=== PATIENT | male | born 1970 | race Caucasian/White ===

== ENCOUNTER 2021-11-01 11:36 | Emergency (ER) | payer BC, SELFPAY ==
--- NOTE | ~2021-11-01 | XR_ITS ---
EXAMINATION: XR CHEST CLINICAL INFORMATION: Shortness of breath COMPARISON: Previous chest x-ray most recent September 2016 TECHNIQUE: Frontal view of the chest was obtained. FINDINGS: The cardiac and mediastinal contours are stable. The lungs are clear. There is no pleural effusion or pneumothorax. There are old left clavicle and left rib fractures. There are degenerative changes of the spine. XR/XR chest 1V IMPRESSION: No evidence for acute disease in the chest.
[2021-11-01 12:45] VITALS: BP 127/82; PULSE 83; RESP 18; TEMP 36.8; O2SAT 95; BMI 30.2
[2021-11-01 13:08] LABS: COVID-19 Test Negative (Negative)
[2021-11-01 18:31] VITALS: BP 137/88; PULSE 80; RESP 16; TEMP 36.8; O2SAT 96
--- NOTE | 2021-11-01 18:34 | ED_ITS ---
HPI - SOB/Dyspnea General Chief Complaint: Dyspnea Stated Complaint: SOB Time Seen by Provider: 11/01/21 18:34 Source: patient Mode of arrival: ambulatory Limitations: no limitations History of Present Illness HPI Narrative: 51 y/o male presents to the ER for evaluation of 6-7 days of a productive, hacking cough. He reports cough is worse at night and keeps him up. He has right sided rib pain when he coughs similar to when he broke ribs. He feels like he may have pneumonia. He is bringing up yellow and white phlegm. He denies fever or chills and reports the worse part is his coughing fits. He has been taking Day and Nyquil with minimal relief. He denies any known sick contacts. MD elicited complaint: cough and pain with inspiration Onset (ago): week(s) (1) Context: recent illness Timing: progressively worsening Severity: moderate Exacerbating factors: coughing Relieving factors: upright position and cool air Associated symptoms: chest pain, pain with inspiration, cough, wheezing, sputum production and chest congestion Treatment prior to arrival: none Related Data Home oxygen amount: none Previous Rx's Medication Instructions Recorded albuterol sulfate 90 mcg/actuation 1 inh INHALATION QID PRN #6.7 g 11/01/21 aerosol inhaler amoxicillin 875 mg-potassium 1 tab PO BID #14 tab 11/01/21 clavulanate 125 mg tablet prednisone 20 mg tablet 40 mg PO DAILY #10 tab 11/01/21 Allergies Allergy/AdvReac Type Severity Reaction Status Date / Time No Known Allergies Allergy Verified 11/01/21 12:44 Review of Systems Review of Systems: Constitutional: No Fever, No Chills ENT/Mouth: + sore throat, No Rhinorrhea, No Swallowing Difficulty Cardiovascular: + Chest Pain, + SOB, No Orthopnea, No Edema Respiratory:+ Cough, + Sputum, + Wheezing, No dyspnea Gastrointestinal: No Nausea, No Vomiting, No Diarrhea, No abdominal Pain Musculoskeletal: No joint pain, + Myalgias Skin: No Skin Lesions, No rash Neuro: No Weakness, No Numbness, No Dizziness, + Headache Psych: No Anxiety/Panic, No Depression Heme/Lymph: No Bruising, No Lymphadenopathy PMFSH Social History Social History Advance Directives: No Advance Directives Information Provided: No Physical Exam 2 Vital Signs: Vital Signs: Last Vital Signs Temp 98.3 F 11/01/21 18:31 Pulse 80 11/01/21 18:31 Resp 16 11/01/21 18:31 BP 137/88 11/01/21 18:31 Pulse Ox 96 11/01/21 18:31 BMI result Body Mass Index 30.2 Appearance: Alert. Oriented X3. No acute distress. Eyes: Pupils equal, round and reactive to light. ENT: Pharynx normal. Neck: Normal inspection. Neck supple. CVS: Normal heart rate and rhythm. Pulses normal. Respiratory: No respiratory distress. Speaks in complete sentences. Harsh, barking cough. End expiratory wheezes in the upper lung chery and scattered rhonchi throughout Abdomen: Soft and nontender. +BS x4 Skin: Skin warm and dry. Normal skin color. Normal skin turgor. No rashes. Extremities: No lower extremity edema. No calf tenderness Neuro: Oriented X 3. No motor deficit. No sensory deficit. Course Course Course Narrative: 51 y/o male presenting with barking cough productive of yellow phelgm and right sided rib pain for 1 week. CXR is clear, no appreciated rib fx. COVID negative. VS normal. Wheezing on exam and rhonchi. Will treat for acute bronchitis. Will give neb and steroids now given wheezing. Reevaluation(s) Reevaluation #1: Only did about half of the updraft and said he feels better and wants to be discharged. Stable for d/c home MDM - SOB/Dyspnea Lab Data Labs: Lab Results 11/01/21 Range/Units 12:48 COVID-19 (CHARLIE) Negative (Negative) COVID-19 Clin Com See Note Discharge Plan Discharge Clinical Impression: Acute bronchitis Patient Disposition: Home, Self-Care Instructions: Acute Bronchitis (ED) Prescriptions: New amoxicillin-pot clavulanate 875-125 mg tablet 1 tab PO BID Qty: 14 0RF albuterol sulfate 90 mcg/actuation HFA aerosol inhaler 1 inh inhalation QID PRN (Reason: shortness of breath or wheezing) Qty: 6.7 0RF prednisone 20 mg tablet 40 mg PO DAILY Qty: 10 0RF Interventions: ED Discharge Assessment Last Done: 11/01/21 19:08 Discharge Date/Time: 11/01/21 19:09
[2021-11-01] MEDS: Amoxicillin/Potassium Clav 875 MG TABLET PO (18:48)
[2021-11-01] MEDS: predniSONE 20 MG TABLET 60 MG PO (18:48)
[2021-11-01] MEDS: Benzonatate 100 MG CAPSULE PO (18:48)
[2021-11-01] MEDS: Albuterol Sulfate (0.083%) 2.5 MG/3 ML VIAL.NEB 5 MG INHALE (19:05)
[2021-11-01 19:12] LABS: Influenza A Negative (Negative); Influenza B2 Negative (Negative)
== END 2021-11-01 19:09 | disposition home or self-care (01) ==
PROVIDERS: Physician Assistant; Emergency Provider Internal Medicine; PCP Internal Medicine
DX: J20.9 Acute bronchitis, unspecified (principal); R06.02 Shortness of breath; Z20.822 Contact with and (suspected) exposure to COVID-19; Z79.899 Other long term (current) drug therapy
CPT/HCPCS: 71045; 87502; 87635; 99284

== ENCOUNTER 2021-12-11 01:12 | Inpatient (IN) | payer BC, SELFPAY ==
--- NOTE | ~2021-12-11 | XR_ITS ---
EXAMINATION: XR CHEST CLINICAL INFORMATION: Cough COMPARISON: Multiple priors TECHNIQUE: Frontal view of the chest was obtained. FINDINGS: Streaky opacities within the lower lungs bilaterally could represent subsegmental atelectasis or infiltrate. No epifanio consolidation. No pleural effusion or pneumothorax. Normal heart size and pulmonary vascularity. Healed fracture deformity of the left mid clavicle. XR/XR chest 1V IMPRESSION: Bilateral lower lobe streaky opacities could represent infiltrates or subsegmental atelectasis.
[2021-12-11 01:17] VITALS: BP 120/79; BP 98/72; PULSE 92; PULSE 94; RESP 18; TEMP 36.6; O2SAT 90; O2SAT 93; BMI 28.8
--- NOTE | 2021-12-11 01:43 | ED.OVERDOSE ---
HPI - Overdose General Chief Complaint: Overdose Stated Complaint: OD Time Seen by Provider: 12/11/21 01:34 History of Present Illness HPI Narrative: Patient is a 51-year-old male found in his basement with pinpoint pupil agonal breathing. Given 7 mg in total of Narcan. Patient woke up. Now is awake alert answering questions. Patient admits to using narcotics. Denies any suicidal homicidal ideation. Was using it for recreational reasons. Has no complaints. Patient from home. Patient not vaccinated for COVID. Related Data Previous Rx's Medication Instructions Recorded albuterol sulfate 90 mcg/actuation 1 inh inhalation QID PRN shortness 11/01/21 aerosol inhaler of breath or wheezing #6.7 grams amoxicillin 875 mg-potassium 1 tab PO BID #14 tabs 11/01/21 clavulanate 125 mg tablet prednisone 20 mg tablet 40 mg PO DAILY #10 tabs 11/01/21 Allergies Allergy/AdvReac Type Severity Reaction Status Date / Time No Known Allergies Allergy Verified 11/01/21 12:44 Review of Systems Review of Systems: Positive overdose Yes all other systems are reviewed and are negative [facility] Past Medical History Attestation statement: The following information was validated with the patient. Social History Social History Alcohol intake: never Patient Tobacco Use Status: Current everyday Tobacco user Use of substances other than those prescribed or required for medical reasons: Yes Substance Use Type: Heroin Advance Directives: No Advance Directives Information Provided: Yes Physical Exam Vital Signs: Vital Signs: Last Vital Signs Temp 97.9 F 12/11/21 01:17 Pulse 92 12/11/21 01:17 Resp 18 12/11/21 01:17 BP 98/72 12/11/21 01:17 Pulse Ox 90 L 12/11/21 01:17 O2 Del Method 12/11/21 01:17 BMI result Body Mass Index 28.8 Appearance: Alert. Oriented X3. No acute distress. Eyes: Pupils equal, round and reactive to light. ENT: Pharynx normal. Neck: Normal inspection. Neck supple. No lymph nodes noted. No crepitus CVS: Normal heart rate and rhythm. Pulses normal. Normal S1 and S2 Respiratory: Positive mild wheezing noted Abdomen: Soft and nontender. No rigidity. No distention. good BS x4 Skin: Skin warm and dry. Normal skin color. Normal skin turgor. Extremities: No lower extremity edema. Neurovascular intact to all extremities. No Lacerations. No Rash Neuro: Oriented X 3. No motor deficit. No sensory deficit. Moving all extermities. No slurred speech MDM - Overdose MDM Narrative Medical decision making narrative: Patient presented today with having altered mental status decreased respiratory rate. Pinpoint pupil. Was given 7 mg in total of Narcan prior to arrival. On arrival patient is breathing at that point. Patient somewhat tired but answered question. There is no fever detected. Patient was noted to be hypoxic with an O2 sat of 90% on room air. Has slightly increased respiratory rate. Patient baseline labs were drawn. It showed a white count of 25. It showed a BUN and creatinine of 17 and 2. No old creatinine was noted the last few years. The previous 1 was in 2013 was normal. IV fluids started. 30 cc/kilos IV fluid. Culture obtained lactate obtained Rocephin started for possible aspiration as patient's chest x-ray showed a focal infiltrate. Patient's case discussed with the hospitalist team. Patient's lactate came back less than 1. He is in stable condition he is awaiting admission. Most likely pneumonia Medical Records Attestation: I reviewed the patient's medical records. Lab Data Attestation: I reviewed the patient's lab results. Result diagrams: 12/11/21 02:09 12/11/21 02:09 Labs: Lab Results 12/11/21 12/11/21 12/11/21 Range/Units 02:09 02:09 02:09 WBC 25.1 H (4.8-10.8) X10*3/uL RBC 5.14 (4.60-5.80) X10*6/uL Hgb 14.8 (14.0-18.0) g/dl Hct 44.2 (42.0-52.0) % MCV 86.0 (80.0-98.0) fL MCH 28.8 (27.0-33.0) pg MCHC 33.5 (31.0-36.0) g/dl RDW 13.6 (11.0-16.0) % Plt Count 325 (160-400) X10*3/uL MPV 9.7 (9.4-12.4) fL Immature Gran % (Auto) 0.9 H (0.0-0.4) % Neut % (Auto) 85.0 H (45-73) % Lymph % (Auto) 3.9 L (20-40) % [place] % (Auto) 7.4 (2-11) % Eos % (Auto) 2.3 (0-4) % Baso % (Auto) 0.5 (0-2) % Lymph # (Auto) 1.0 L (1.2-4.9) X10*3/uL [place] # (Auto) 1.9 H (0.1-1.2) X10*3/uL Eos # (Auto) 0.6 H (0.0-0.4) X10*3/uL Baso # (Auto) 0.1 (0.0-0.2) X10*3/uL Abs Immat Gran (auto) 0.22 H (0.00-0.03) X10*3/uL Absolute Neuts (auto) 21.3 H (2.0-8.3) x10*3/uL Absolute Nucleated RBC 0.000 (0.0-0.012) X10*3/uL Nucleated RBC % (auto) 0.0 (0.0-0.2) /100WBC Smear Tech's Comments VERIFIED Sodium 143 (135-145) mmol/L Potassium 3.4 (3.3-5.1) mmol/L Chloride 109 H (96-108) mmol/L Carbon Dioxide 25 (22-29) mmol/L Anion Gap 12 (12-20) BUN 17 H (9-16) mg/dL Creatinine 2.00 H (0.5-1.4) mg/dL Estim Creat Clear Calc 48.1 Estimated GFR 35 Random Glucose 97 (60-115) mg/dL Lactic Acid (0.5-2.0) mmol/L Calcium 9.3 (8.4-10.2) mg/dL Ethyl Alcohol mg/dL COVID-19 (CHARLIE) Negative (Negative) COVID-19 Clin Com See Note 12/11/21 12/11/21 Range/Units 02:09 02:59 WBC (4.8-10.8) X10*3/uL RBC (4.60-5.80) X10*6/uL Hgb (14.0-18.0) g/dl Hct (42.0-52.0) % MCV (80.0-98.0) fL MCH (27.0-33.0) pg MCHC (31.0-36.0) g/dl RDW (11.0-16.0) % Plt Count (160-400) X10*3/uL MPV (9.4-12.4) fL Immature Gran % (Auto) (0.0-0.4) % Neut % (Auto) (45-73) % Lymph % (Auto) (20-40) % [place] % (Auto) (2-11) % Eos % (Auto) (0-4) % Baso % (Auto) (0-2) % Lymph # (Auto) (1.2-4.9) X10*3/uL [place] # (Auto) (0.1-1.2) X10*3/uL Eos # (Auto) (0.0-0.4) X10*3/uL Baso # (Auto) (0.0-0.2) X10*3/uL Abs Immat Gran (auto) (0.00-0.03) X10*3/uL Absolute Neuts (auto) (2.0-8.3) x10*3/uL Absolute Nucleated RBC (0.0-0.012) X10*3/uL Nucleated RBC % (auto) (0.0-0.2) /100WBC Smear Tech's Comments Sodium (135-145) mmol/L Potassium (3.3-5.1) mmol/L Chloride (96-108) mmol/L Carbon Dioxide (22-29) mmol/L Anion Gap (12-20) BUN (9-16) mg/dL Creatinine (0.5-1.4) mg/dL Estim Creat Clear Calc Estimated GFR Random Glucose (60-115) mg/dL Lactic Acid 0.9 (0.5-2.0) mmol/L Calcium (8.4-10.2) mg/dL Ethyl Alcohol < 10 mg/dL COVID-19 (CHARLIE) (Negative) COVID-19 Clin Com Discharge Plan Discharge Clinical Impression: Drug overdose, Pneumonia Patient Disposition: Admitted As Inpatient
[2021-12-11 02:15] LABS: Basophils Absolute Auto 0.1 X10*3/uL (0.0-0.2); Basophils Percent Auto 0.5 % (0-2); Eosinophils Absolute Auto 0.6 X10*3/uL (0.0-0.4); Eosinophils Percent Auto 2.3 % (0-4); Hematocrit 44.2 % (42.0-52.0); Hemoglobin 14.8 g/dl (14.0-18.0); Imm Gran Abs Auto 0.22 X10*3/uL (0.00-0.03); Imm Gran Pct Auto 0.9 % (0.0-0.4); Lymphocytes Percent Auto 3.9 % (20-40); MANUAL DIFF FLAG SCAN; Mean Corpuscular HGB Conc 33.5 g/dl (31.0-36.0); Mean Corpuscular Hemoglobin 28.8 pg (27.0-33.0); Mean Platelet Volume 9.7 fL (9.4-12.4); Monocytes Absolute Auto 1.9 X10*3/uL (0.1-1.2); Monocytes Percent Auto 7.4 % (2-11); Neutrophils Absolute Auto 21.3 x10*3/uL (2.0-8.3); Platelet Count 325 X10*3/uL (160-400); Red Blood Count 5.14 X10*6/uL (4.60-5.80); Red Cell Distribution Width 13.6 % (11.0-16.0); SCAN SMEAR FLAG 1; White Blood Count 25.1 X10*3/uL (4.8-10.8)
[2021-12-11 02:29] LABS: COVID-19 Test Negative (Negative); IDNOW Serial# 16C4AD1C
[2021-12-11 02:31] LABS: Ethanol < 10 mg/dL
[2021-12-11 02:33] LABS: Anion Gap 12 (12-20); Blood Urea Nitrogen 17 mg/dL (9-16); Calcium 9.3 mg/dL (8.4-10.2); Carbon Dioxide 25 mmol/L (22-29); Chloride 109 mmol/L (96-108); Creatinine Clr Calc Pharmacy 48.1; Estimated Glomerular Filt Rate 35; Glucose Random 97 mg/dL (60-115); Potassium 3.4 mmol/L (3.3-5.1); Sodium 143 mmol/L (135-145)
[2021-12-11 02:37] LABS: SLIDE REVIEW VERIFIED
[2021-12-11] MEDS: 0.9 % Sodium Chloride 1,000 ML 999 ML IV ×3 (02:45→03:02)
[2021-12-11] MEDS: cefTRIAXone sodium 1 GM in 0.9 % Sodium Chloride 50 ML IV (03:09)
[2021-12-11 03:26] LABS: Lactic Acid 0.9 mmol/L (0.5-2.0)
--- NOTE | 2021-12-11 04:00 | P.HPHOSP_ITS ---
History of Present Illness Date of Service: 12/11/21 Chief Complaint: Heroin overdose 51-year-old male with a past medical history of asthma, opiate dependence presented to the hospital after being found unresponsive at home. Patient mentioned that he uses heroin frequently. Today he was found in the basement unresponsive. Patient was given Narcan 7 mg total. Followed by patient became alert and awake. Subsequently brought into the ER for further evaluation. Patient denies any fever chills cough. Denies any chest pain or palpitations. Denies any nausea vomiting or diarrhea. Review of all other systems is negative except mentioned above ER course: Per ER team patient currently alert and awake; exam nonfocal; but noted to have hypoxic to 90% on room air; chest x-ray showed findings concerning for pneumonia; given gentle IV fluids and started on antibiotics. Also noted to have leukocytosis of 25 and elevated kidney function of 2.0. Admitted for further management. [facility] Pertinent family history: Reviewed, denies any significant family history. Social History Alcohol intake: never Patient Tobacco Use Status: Current everyday Tobacco user Use of substances other than those prescribed or required for medical reasons: Yes Substance Use Type: Heroin Advance Directives: No Advance Directives Information Provided: Yes Meds Allergies Allergy/AdvReac Type Severity Reaction Status Date / Time No Known Allergies Allergy Verified 11/01/21 12:44 Active Medications: Current Medications Sodium Chloride (Ns) 1,000 mls @ 999 mls/hr IV .Q1H1M CLEMENTE Stop: 12/11/21 04:45 Last Admin: 12/11/21 03:02 Dose: 999 mls/hr Pharmacy Consult (Consult Rx Perform Med Rec) 1 each MISCELLANE ONCE PRN PRN Reason: Consult order Physical Exam Vital Signs and Narrative: Vital Signs: Last Vital Signs Temp 97.9 F 12/11/21 01:17 Pulse 92 12/11/21 01:17 Resp 18 12/11/21 01:17 BP 98/72 12/11/21 01:17 Pulse Ox 90 L 12/11/21 01:17 O2 Del Method 12/11/21 01:17 BMI result Body Mass Index 28.8 Gen: Appears be in no acute distress HEENT: NCAT, Moist mucosa. Pulmonary: Vesicular breath sounds, fair air entry CVS: Normal S1-S2 Abdomen: BS+, Soft, Nontender Extremities: Warm well perfused Neuro: Alert and awake. Results Labs CBC and Chem 7: 12/11/21 02:09 12/11/21 02:09 Labs: Laboratory Results - last 24 hr 12/11/21 12/11/21 12/11/21 02:09 02:09 02:09 MCV 86.0 MCH 28.8 MCHC 33.5 RDW 13.6 Plt Count 325 MPV 9.7 Immature Gran % (Auto) 0.9 H Neut % (Auto) 85.0 H Lymph % (Auto) 3.9 L [place] % (Auto) 7.4 Eos % (Auto) 2.3 Baso % (Auto) 0.5 Lymph # (Auto) 1.0 L [place] # (Auto) 1.9 H Eos # (Auto) 0.6 H Baso # (Auto) 0.1 Abs Immat Gran (auto) 0.22 H Absolute Neuts (auto) 21.3 H Absolute Nucleated RBC 0.000 Nucleated RBC % (auto) 0.0 Smear Tech's Comments VERIFIED Anion Gap 12 Estim Creat Clear Calc 48.1 Estimated GFR 35 Random Glucose 97 Lactic Acid Calcium 9.3 Ethyl Alcohol COVID-19 (CHARLIE) Negative COVID-19 Clin Com See Note 12/11/21 12/11/21 02:09 02:59 MCV MCH MCHC RDW Plt Count MPV Immature Gran % (Auto) Neut % (Auto) Lymph % (Auto) [place] % (Auto) Eos % (Auto) Baso % (Auto) Lymph # (Auto) [place] # (Auto) Eos # (Auto) Baso # (Auto) Abs Immat Gran (auto) Absolute Neuts (auto) Absolute Nucleated RBC Nucleated RBC % (auto) Smear Tech's Comments Anion Gap Estim Creat Clear Calc Estimated GFR Random Glucose Lactic Acid 0.9 Calcium Ethyl Alcohol < 10 COVID-19 (CHARLIE) COVID-19 Clin Com Imaging Radiologist's Impressions: Impressions Chest X-Ray 12/11/21 01:40 IMPRESSION: Bilateral lower lobe streaky opacities could represent infiltrates or subsegmental atelectasis. Assessment and Plan (1) Pneumonia: Status: Acute (2) Drug overdose: Status: Acute Plan 51-year-old male with a past medical history of asthma, opiate dependence presented to the hospital after being found unresponsive at home. Noted to have following conditions Unresponsive episode: In the setting of heroin overdose. Patient noted to have pinpoint pupils on the field. Received 7 mg of total Narcan. Patient currently alert and awake. Answering questions. Supportive care. Monitor on telemetry. Pneumonia: Concern for aspiration. Patient afebrile but noted to have severe leukocytosis. Patient currently on ceftriaxone and doxycycline. Follow up cultures. JOSE: Likely prerenal. Gentle IV fluids. Opiate dependence: Addiction Medicine consult. History of asthma: Stable. DVT prophylaxis: Lovenox Code status: Full code Quality Stroke Does the patient have a stroke diagnosis?: No VTE Prior VTE?: No VTE Risk Level:: Medical - moderate - high VTE Device Contraindication: Treatment Not Indicated VTE Drug Contraindication: N/A - Med Ordered
--- NOTE | 2021-12-11 04:49 | PC.NURSE ---
Patients fluids were not running due to IV pole being to low. Iv pole replaced and elevated and fluids now running . Dextrose ordered fluid will be late
[2021-12-11 05:10] VITALS: BP 96/55; PULSE 92; RESP 18; O2SAT 98
[2021-12-11] MEDS: Dextrose 5 % and 0.9 % NaCl 1,000 ML 100 ML IVCONT (05:22)
[2021-12-11] MEDS: Doxycycline Hyclate 100 MG in 0.9 % Sodium Chloride 250 ML 166.67 MG IV (05:22)
[2021-12-11 07:02] LABS: MANUAL DIFF FLAG NO
[2021-12-11 07:06] LABS: Basophils Absolute Auto 0.1 X10*3/uL (0.0-0.2); Basophils Percent Auto 0.5 % (0-2); Eosinophils Absolute Auto 0.3 X10*3/uL (0.0-0.4); Eosinophils Percent Auto 1.9 % (0-4); Hematocrit 38.8 % (42.0-52.0); Hemoglobin 12.9 g/dl (14.0-18.0); Imm Gran Abs Auto 0.09 X10*3/uL (0.00-0.03); Imm Gran Pct Auto 0.6 % (0.0-0.4); Lymphocytes Absolute Auto 1.2 X10*3/uL (1.2-4.9); Lymphocytes Percent Auto 8.4 % (20-40); Mean Corpuscular HGB Conc 33.2 g/dl (31.0-36.0); Mean Corpuscular Hemoglobin 29.2 pg (27.0-33.0); Mean Corpuscular Volume 87.8 fL (80.0-98.0); Monocytes Absolute Auto 1.1 X10*3/uL (0.1-1.2); Monocytes Percent Auto 7.2 % (2-11); Neutrophils Percent Auto 81.4 % (45-73); Platelet Count 290 X10*3/uL (160-400); Red Blood Count 4.42 X10*6/uL (4.60-5.80); Red Cell Distribution Width 13.8 % (11.0-16.0); White Blood Count 14.8 X10*3/uL (4.8-10.8)
[2021-12-11 07:25] LABS: Anion Gap 12 (12-20); Blood Urea Nitrogen 15 mg/dL (9-16); Calcium 7.6 mg/dL (8.4-10.2); Carbon Dioxide 21 mmol/L (22-29); Chloride 112 mmol/L (96-108); Creatinine Clr Calc Pharmacy 63.7; Estimated Glomerular Filt Rate 49; Glucose Random 140 mg/dL (60-115); Potassium 3.6 mmol/L (3.3-5.1); Sodium 141 mmol/L (135-145)
[2021-12-11 07:37] VITALS: BP 114/66; PULSE 76; RESP 20; O2SAT 97
[2021-12-11 08:35] LABS: Alanine Aminotransferase 41 U/L (0-40); Albumin Level 3.6 g/dL (3.5-5.0); Alkaline Phosphatase 78 U/L (39-117); Aspartate Amino Transferase 50 U/L (5-37); Bilirubin Direct < 0.2 mg/dL (0.0-0.5); Bilirubin Total 0.4 mg/dL (0.0-1.0); Total Protein 5.8 g/dL (6.5-8.0)
--- NOTE | 2021-12-11 08:44 | PHA.MEDREC ---
med rec complete, no issues Pharmacy Consult ? Medication Reconciliation Pharmacy has completed the medication reconciliation.
--- NOTE | 2021-12-11 09:50 | MHC.RECOVSUP ---
Recovery Support note: Patient is a 51 year old [place] speaking male who presented to [facility] after an accidental heroin overdose. This scientific technical writer met with patient to discuss substance use and recovery supports. Patient reports his nephew recently got out of substance use rehab and that he found him overdosed and called EMS. Patient reports he saw the heroin that his nephew was using and that he decided to try it out. Patient stated curiosity got the best of me. Patient reports he had never used heroin before and that this was his first time. Patient used intranasally. Patient reports he uses marijuana and denies all other substance use. Educated patient on the prevalence of fentanyl in local substances, the effects of tolerance and the risk of overdose and . Patient acknowledges and reports he will never be using heroin again. Patient stated curiosity almost killed the cat, almost killed me. Discussed case with Siria Fink NP.
--- NOTE | 2021-12-11 10:45 | HO.PM.IMPN ---
Subjective Subjective Date of Service: 12/11/21 Interval History: cc: ams interval history:cough Cardiovascular Cardiovascular: Reports no additional cardiovascular complaints Respiratory Respiratory: Reports no additional respiratory complaints Physical Exam Vital Signs: Vital Signs: Last Vital Signs Temp 97.9 F 12/11/21 01:17 Pulse 76 12/11/21 07:37 Resp 20 12/11/21 07:37 BP 114/66 12/11/21 07:37 Pulse Ox 97 12/11/21 07:37 O2 Del Method 12/11/21 07:37 O2 Flow Rate 2 12/11/21 07:37 BMI result Body Mass Index 28.8 General: AO X 3, no acute distress Resp: Crackles bilateral, no accessory muscles used CVS: S1,S2,RRR GI: soft, non tender, non distended Neuro: motor grossly intact, alert Psych: appropriate affect, appropriate insight Objective Data Active Medications Acetaminophen (Acetaminophen 325 Mg Tablet) 650 mg PO Q6H PRN PRN Reason: Pain, Mild (Pain Scale 1-3) Albuterol/Ipratropium (Albuterol/Iprat 2.5/0.5mg 3 Ml Ampul.Neb) 3 ml INHALE RQ4H PRN PRN Reason: Shortness of Breath/Wheezing Enoxaparin Sodium (Enoxaparin Sodium 40 Mg/0.4 Ml Syringe) 40 mg SUBCUT Q24H [facility] Last Admin: 12/11/21 05:23 Dose: Not Given Documented By: LATRICIA Non-Admin Reason: Patient Refused Ceftriaxone Sodium 1 gm/ (Sodium Chloride) 50 mls @ 100 mls/hr IV Q24H [facility] Melatonin (Melatonin 3 Mg Tablet) 6 mg PO BEDTIME PRN PRN Reason: Insomnia Oxycodone HCl (Oxycodone Hcl Immed Release 5 Mg Tablet) 5 mg PO Q6H PRN PRN Reason: Pain, Severe (Pain Scale 7-10) Pharmacy Consult (Consult Rx Perform Med Rec) 1 each MISCELLANE ONCE PRN PRN Reason: Consult order Pharmacy Consult (Consult Rx Perform Med Rec) 1 each MISCELLANE ONCE PRN PRN Reason: Consult order Sodium Chloride (0.9 % Sodium Chloride Flush 3 Ml Syringe) 3 ml IVFLUSH QSHIFT [facility] Labs CBC & Chem 7: 12/11/21 06:38 12/11/21 06:38 Labs: Laboratory Results - last 24 hr 12/11/21 12/11/21 12/11/21 02:09 02:09 02:09 MCV 86.0 MCH 28.8 MCHC 33.5 RDW 13.6 Plt Count 325 MPV 9.7 Immature Gran % (Auto) 0.9 H Neut % (Auto) 85.0 H Lymph % (Auto) 3.9 L [place] % (Auto) 7.4 Eos % (Auto) 2.3 Baso % (Auto) 0.5 Lymph # (Auto) 1.0 L [place] # (Auto) 1.9 H Eos # (Auto) 0.6 H Baso # (Auto) 0.1 Abs Immat Gran (auto) 0.22 H Absolute Neuts (auto) 21.3 H Absolute Nucleated RBC 0.000 Nucleated RBC % (auto) 0.0 Smear Tech's Comments VERIFIED Anion Gap 12 Estim Creat Clear Calc 48.1 Estimated GFR 35 Random Glucose 97 Lactic Acid Calcium 9.3 Total Bilirubin Direct Bilirubin AST ALT Alkaline Phosphatase Total Protein Albumin Ethyl Alcohol COVID-19 (CHARLIE) Negative COVID-19 Clin Com See Note 12/11/21 12/11/21 12/11/21 02:09 02:59 06:38 MCV 87.8 MCH 29.2 MCHC 33.2 RDW 13.8 Plt Count 290 MPV 10.0 Immature Gran % (Auto) 0.6 H Neut % (Auto) 81.4 H Lymph % (Auto) 8.4 L [place] % (Auto) 7.2 Eos % (Auto) 1.9 Baso % (Auto) 0.5 Lymph # (Auto) 1.2 [place] # (Auto) 1.1 Eos # (Auto) 0.3 Baso # (Auto) 0.1 Abs Immat Gran (auto) 0.09 H Absolute Neuts (auto) 12.0 H Absolute Nucleated RBC 0.000 Nucleated RBC % (auto) 0.0 Smear Tech's Comments Anion Gap Estim Creat Clear Calc Estimated GFR Random Glucose Lactic Acid 0.9 Calcium Total Bilirubin Direct Bilirubin AST ALT Alkaline Phosphatase Total Protein Albumin Ethyl Alcohol < 10 COVID-19 (CHARLIE) COVID-19 Clin Com 12/11/21 06:38 MCV MCH MCHC RDW Plt Count MPV Immature Gran % (Auto) Neut % (Auto) Lymph % (Auto) [place] % (Auto) Eos % (Auto) Baso % (Auto) Lymph # (Auto) [place] # (Auto) Eos # (Auto) Baso # (Auto) Abs Immat Gran (auto) Absolute Neuts (auto) Absolute Nucleated RBC Nucleated RBC % (auto) Smear Tech's Comments Anion Gap 12 Estim Creat Clear Calc 63.7 Estimated GFR 49 Random Glucose 140 H D Lactic Acid Calcium 7.6 L D Total Bilirubin 0.4 Direct Bilirubin < 0.2 AST 50 H ALT 41 H Alkaline Phosphatase 78 Total Protein 5.8 L Albumin 3.6 Ethyl Alcohol COVID-19 (CHARLIE) COVID-19 Clin Com Assessment and Plan (1) Drug overdose: Status: Acute Plan 51M presented with ams Toxic metabolic encephalopathy due to accidental heroin overdose complicated by Severe sepsis present on admission due to aspiration pneumonia. ( tachycardia, leukocytosis, acute kidney injury) mental status back to baseline after Narcan sepsis resolved, leukocytosis improving continue ceftriaxone follow-up cultures acute kidney injury likely prerenal improving with IV fluids, will change to LR due to hyperchloremia opiate dependence addiction medicine evaluation mood disorder continue fluoxetine mild intermittent asthma albuterol as needed DVT prophylaxis with Lovenox full code reason for continued hospitalization: need for iv hydration for feliz, iv abx for aspiration pnuemonia Quality Stroke Does the patient have a stroke diagnosis?: No VTE Prior VTE?: No VTE Risk Level:: Medical - moderate - high VTE Device Contraindication: Treatment Not Indicated VTE Drug Contraindication: N/A - Med Ordered
[2021-12-11] MEDS: Lactated Ringers 1,000 ML 80 ML IVCONT ×2 (10:55→21:55)
[2021-12-11 14:05] VITALS: BP 95/76; PULSE 76; RESP 22; O2SAT 94
--- NOTE | 2021-12-11 17:43 | PM.EVENT ---
Event Note Date of Service: 12/11/21 Event Note: Addiction Consult Please see Recovery Support Note from 12/11
--- NOTE | 2021-12-11 18:07 | PC.NURSE ---
This RN assumed care of patient in overflow unit at this time
[2021-12-11 18:18] VITALS: BP 140/81; PULSE 84; RESP 16; TEMP 36.6; O2SAT 95
[2021-12-11] MEDS: Benzonatate 100 MG CAPSULE 200 MG PO (18:39)
[2021-12-11 20:00] VITALS: PULSE 71
[2021-12-11] MEDS: Melatonin 3 MG TABLET 6 MG PO (21:57)
[2021-12-11] MEDS: oxyCODONE HCl Immed Release 5 MG TABLET PO (22:12)
--- NOTE | 2021-12-11 23:13 | PC.NURSE ---
Assumed care of pt Pt c/o sound on monitor and pump. Explained to pt that monitors are all connected when one monitor beeps sometimes they all beep. Explained to pt that staff, including this RN, will try to keep on top of monitor beeps and turn it off as soon as we can. Pt verbalized understanding. Pt medicated per AUG Pt tolerated pills Pt requesting more cough med. Dr. Méndez made aware. 20 guage IV placed on RT forearm Pt c/o pain from old IV site No tremors noted Denies any join pain, only c/o pain in abdomen when coughing Denies any AH/VH AxO x 4, clear and complete sentences Will continue to monitor
[2021-12-12] VITALS (9 sets, daily range): BP systolic 127–158; BP diastolic 74–93; PULSE 70–97; RESP 18–20; TEMP 36.6–37.3; O2SAT 95–100
[2021-12-12] MEDS: Benzonatate 100 MG CAPSULE 200 MG PO ×2 (05:10→18:30)
[2021-12-12 07:16] LABS: Hematocrit 39.2 % (42.0-52.0); Hemoglobin 12.9 g/dl (14.0-18.0); Mean Corpuscular HGB Conc 32.9 g/dl (31.0-36.0); Mean Corpuscular Hemoglobin 28.9 pg (27.0-33.0); Mean Corpuscular Volume 87.7 fL (80.0-98.0); Platelet Count 261 X10*3/uL (160-400); Red Blood Count 4.47 X10*6/uL (4.60-5.80); Red Cell Distribution Width 13.8 % (11.0-16.0); White Blood Count 11.1 X10*3/uL (4.8-10.8)
[2021-12-12 07:35] LABS: Anion Gap 8 (12-20); Blood Urea Nitrogen 11 mg/dL (9-16); Calcium 8.3 mg/dL (8.4-10.2); Carbon Dioxide 27 mmol/L (22-29); Chloride 110 mmol/L (96-108); Creatinine Clr Calc Pharmacy 87.4; Estimated Glomerular Filt Rate > 60; Glucose Fasting 104 mg/dL (60-99); Magnesium 1.9 mg/dL (1.6-2.6); Potassium 3.5 mmol/L (3.3-5.1); Sodium 141 mmol/L (135-145)
[2021-12-12 08:00] LABS: HBS Num1 3.08 mIU/mL (0-7.99); HBc Num1 0.07 S/CO (0.00-0.79); HBsAGNum1 0.23 S/CO (0.00-0.99); Hepatitis B Core Antibody Nonreactive (Nonreactive); Hepatitis B Surface Antigen Negative (Negative); ~HepC Num1 0.04 S/CO (0.00-0.79); ~Hepatitis B Surface Antibody NONREACTIVE (Nonreactive); ~Hepatitis C Antibody Nonreactive (Nonreactive)
[2021-12-12] MEDS: Albuterol/Iprat 2.5/0.5MG 3 ML AMPUL.NEB INHALE ×3 (08:28→15:35)
--- NOTE | 2021-12-12 08:33 | PC.NURSE ---
REPORT GIVEN TO JAVY JO. PT WILL BE TRANSPORTED TO ROOM 482.
[2021-12-12] MEDS: cefTRIAXone sodium 1 GM in 0.9 % Sodium Chloride 50 ML IV (09:27)
[2021-12-12] MEDS: methylPREDNISolone Sod Succ 40 MG/ML VIAL IVPUSH ×2 (09:27→21:06)
[2021-12-12] MEDS: Lactated Ringers 1,000 ML 80 ML IVCONT ×2 (09:27→21:14)
[2021-12-12] MEDS: FLUoxetine HCl 20 MG CAPSULE 60 MG PO (09:28)
--- NOTE | 2021-12-12 09:57 | P.PNIM_ITS ---
Subjective Subjective Date of Service: 12/12/21 Interval History: cc: ams interval history:cough Cardiovascular Cardiovascular: Reports no additional cardiovascular complaints Respiratory Respiratory: Reports no additional respiratory complaints Physical Exam Vital Signs: Vital Signs: Last Vital Signs Temp 97.8 F 12/12/21 08:00 Pulse 74 12/12/21 08:29 Resp 20 12/12/21 08:29 BP 127/76 12/12/21 08:00 Pulse Ox 98 12/12/21 08:00 O2 Del Method 12/12/21 08:00 O2 Flow Rate 2 12/12/21 08:00 BMI result Body Mass Index 28.8 General: AO X 3, no acute distress Resp: Crackles bilateral, no accessory muscles used CVS: S1,S2,RRR GI: soft, non tender, non distended Neuro: motor grossly intact, alert Psych: appropriate affect, appropriate insight Objective Data Active Medications Acetaminophen (Acetaminophen 325 Mg Tablet) 650 mg PO Q6H PRN PRN Reason: Pain, Mild (Pain Scale 1-3) Albuterol/Ipratropium (Albuterol/Iprat 2.5/0.5mg 3 Ml Ampul.Neb) 3 ml INHALE RQ4H [facility] Benzonatate (Benzonatate 100 Mg Capsule) 200 mg PO TID PRN PRN Reason: Cough Last Admin: 12/12/21 05:10 Dose: 200 mg Documented By: GLENDY Enoxaparin Sodium (Enoxaparin Sodium 40 Mg/0.4 Ml Syringe) 40 mg SUBCUT Q24H [facility] Last Admin: 12/12/21 05:12 Dose: Not Given Documented By: GLENDY Non-Admin Reason: Patient Refused Fluoxetine HCl (Fluoxetine Hcl 20 Mg Capsule) 60 mg PO DAILY [facility] Last Admin: 12/12/21 09:28 Dose: 60 mg Documented By: HIRAL Ceftriaxone Sodium 1 gm/ (Sodium Chloride) 50 mls @ 100 mls/hr IV Q24H [facility] Last Admin: 12/12/21 09:27 Dose: 100 mls/hr Documented By: HIRAL Lactated Ringer's (Lr) 1,000 mls @ 80 mls/hr IVCONT .[id number] [facility] Last Admin: 12/12/21 09:27 Dose: 80 mls/hr Documented By: HIRAL Melatonin (Melatonin 3 Mg Tablet) 6 mg PO BEDTIME PRN PRN Reason: Insomnia Last Admin: 12/11/21 21:57 Dose: 6 mg Documented By: GLENDY Methylprednisolone Sodium Succinate (Methylprednisolone Sod Succ 40 Mg/Ml Vial) 40 mg IVPUSH Q12H [facility] Last Admin: 12/12/21 09:27 Dose: 40 mg Documented By: HIRAL Oxycodone HCl (Oxycodone Hcl Immed Release 5 Mg Tablet) 5 mg PO Q6H PRN PRN Reason: Pain, Severe (Pain Scale 7-10) Last Admin: 12/11/21 22:12 Dose: 5 mg Documented By: GLENDY Pharmacy Consult (Consult Rx Perform Med Rec) 1 each MISCELLANE ONCE PRN PRN Reason: Consult order Pharmacy Consult (Consult Rx Perform Med Rec) 1 each MISCELLANE ONCE PRN PRN Reason: Consult order Sodium Chloride (0.9 % Sodium Chloride Flush 3 Ml Syringe) 3 ml IVFLUSH QSHIFT [facility] Last Admin: 12/12/21 09:06 Dose: Not Given Documented By: JARON Non-Admin Reason: IV Running Labs CBC & Chem 7: 12/12/21 06:27 12/12/21 06:27 Labs: Laboratory Results - last 24 hr 12/12/21 12/12/21 12/12/21 06:27 06:27 06:27 MCV 87.7 MCH 28.9 MCHC 32.9 RDW 13.8 Plt Count 261 MPV 10.0 Absolute Nucleated RBC 0.000 Nucleated RBC % (auto) 0.0 Anion Gap 8 L Estim Creat Clear Calc 87.4 Estimated GFR > 60 Fasting Glucose 104 H Calcium 8.3 L D Magnesium 1.9 Hep Bs Antigen Negative Hep Bs Antibody NONREACTIVE Hep B Core Total Ab Nonreactive Hepatitis C Ab (EIA) Nonreactive Microbiology Microbiology Results: Microbiology 12/11/21 02:59 Blood Culture - Preliminary Blood - Venous No growth after 24 hours. 12/11/21 02:59 Blood Culture - Preliminary Blood - Venous No growth after 24 hours. Assessment and Plan (1) Drug overdose: Status: Acute Plan 51M presented with ams Toxic metabolic encephalopathy due to accidental heroin overdose complicated by Severe sepsis present on admission due to aspiration pneumonia. ( tachycardia, leukocytosis, acute kidney injury) mental status back to baseline after Narcan sepsis resolved, leukocytosis improving continue ceftriaxone follow-up cultures COPD/mild intermittent asthma with acute decompensation methylprednisolone, gladisonejena acute kidney injury likely prerenal improving with IV fluids, continue LR opiate overdose addiction medicine appreciated reports single use, denies dependence mood disorder continue fluoxetine DVT prophylaxis with Lovenox full code reason for continued hospitalization: need for iv hydration for feliz, iv abx for aspiration pnuemonia, steroids and bronchodilators for copd/asthma Quality Stroke Does the patient have a stroke diagnosis?: No VTE Prior VTE?: No VTE Risk Level:: Medical - moderate - high VTE Device Contraindication: Treatment Not Indicated VTE Drug Contraindication: N/A - Med Ordered
[2021-12-12] MEDS: guaiFENesin DM 100/10/5 ML 5 ML SYRUP PO (11:08)
--- NOTE | 2021-12-12 11:53 | MHC.RECOVRN ---
Attempted to meet with pt in 482 to assess for opiate withdrawal symptoms. Pt sleeping and requesting t/w to return at another time.
[2021-12-12] MEDS: Melatonin 3 MG TABLET 6 MG PO (21:10)
[2021-12-12] MEDS: 0.9 % Sodium Chloride Flush 3 ML SYRINGE IVFLUSH (21:14)
[2021-12-13] VITALS (10 sets, daily range): BP systolic 130–149; BP diastolic 73–91; PULSE 76–94; RESP 16–18; TEMP 36.6–37.4; O2SAT 95–99
[2021-12-13 07:01] LABS: Hemoglobin 12.6 g/dl (14.0-18.0); Mean Corpuscular HGB Conc 33.2 g/dl (31.0-36.0); Mean Corpuscular Hemoglobin 28.6 pg (27.0-33.0); Mean Corpuscular Volume 86.4 fL (80.0-98.0); Platelet Count 269 X10*3/uL (160-400); Red Cell Distribution Width 13.5 % (11.0-16.0); White Blood Count 13.3 X10*3/uL (4.8-10.8)
[2021-12-13 07:31] LABS: Anion Gap 11 (12-20); Blood Urea Nitrogen 8 mg/dL (9-16); Calcium 8.8 mg/dL (8.4-10.2); Carbon Dioxide 27 mmol/L (22-29); Chloride 108 mmol/L (96-108); Creatinine Clr Calc Pharmacy 108.1; Estimated Glomerular Filt Rate > 60; Glucose Fasting 130 mg/dL (60-99); Potassium 3.9 mmol/L (3.3-5.1); Sodium 142 mmol/L (135-145)
[2021-12-13] MEDS: Albuterol/Iprat 2.5/0.5MG 3 ML AMPUL.NEB INHALE ×2 (08:25→19:14)
[2021-12-13] MEDS: cefTRIAXone sodium 1 GM in 0.9 % Sodium Chloride 50 ML IV (09:14)
[2021-12-13] MEDS: 0.9 % Sodium Chloride Flush 3 ML SYRINGE IVFLUSH ×3 (09:15→20:54)
[2021-12-13] MEDS: methylPREDNISolone Sod Succ 40 MG/ML VIAL IVPUSH ×2 (10:04→20:54)
[2021-12-13] MEDS: FLUoxetine HCl 20 MG CAPSULE 60 MG PO (10:04)
[2021-12-13] MEDS: Benzonatate 100 MG CAPSULE 200 MG PO ×2 (10:05→18:17)
[2021-12-13] MEDS: Lactated Ringers 1,000 ML 80 ML IVCONT (10:05)
--- NOTE | 2021-12-13 11:23 | HO.PM.IMPN ---
Subjective Subjective Date of Service: 12/13/21 Interval History: cc: ams interval history:cough, sob Cardiovascular Cardiovascular: Reports no additional cardiovascular complaints Respiratory Respiratory: Reports no additional respiratory complaints Physical Exam Vital Signs: Vital Signs: Last Vital Signs Temp 98.8 F 12/13/21 08:00 Pulse 87 12/13/21 08:29 Resp 18 12/13/21 08:29 BP 140/78 H 12/13/21 08:00 Pulse Ox 97 12/13/21 08:00 O2 Del Method 12/13/21 08:00 O2 Flow Rate 2 12/13/21 04:00 BMI result Body Mass Index 28.8 General: AO X 3, no acute distress Resp: rhonchi bilateral, no accessory muscles used CVS: S1,S2,RRR GI: soft, non tender, non distended Neuro: motor grossly intact, alert Psych: appropriate affect, appropriate insight Objective Data Active Medications Acetaminophen (Acetaminophen 325 Mg Tablet) 650 mg PO Q6H PRN PRN Reason: Pain, Mild (Pain Scale 1-3) Albuterol/Ipratropium (Albuterol/Iprat 2.5/0.5mg 3 Ml Ampul.Neb) 3 ml INHALE RQ4H [facility] Last Admin: 12/13/21 11:08 Dose: Not Given Documented By: FARNAZ Non-Admin Reason: Patient Asleep Benzonatate (Benzonatate 100 Mg Capsule) 200 mg PO TID PRN PRN Reason: Cough Last Admin: 12/13/21 10:05 Dose: 200 mg Documented By: MARGARETTE Enoxaparin Sodium (Enoxaparin Sodium 40 Mg/0.4 Ml Syringe) 40 mg SUBCUT Q24H [facility] Last Admin: 12/13/21 06:42 Dose: Not Given Documented By: RADHA Non-Admin Reason: Patient Refused Fluoxetine HCl (Fluoxetine Hcl 20 Mg Capsule) 60 mg PO DAILY [facility] Last Admin: 12/13/21 10:04 Dose: 60 mg Documented By: MARGARETTE Guaifenesin/Dextromethorphan (Guaifenesin Dm 100/10/5 Ml 5 Ml Syrup) 5 ml PO Q4H PRN PRN Reason: cough Last Admin: 12/12/21 11:08 Dose: 5 ml Documented By: HIRAL Ceftriaxone Sodium 1 gm/ (Sodium Chloride) 50 mls @ 100 mls/hr IV Q24H [facility] Last Infusion: 12/13/21 09:50 Dose: 0 mls/hr Documented By: MARGARETTE Melatonin (Melatonin 3 Mg Tablet) 6 mg PO BEDTIME PRN PRN Reason: Insomnia Last Admin: 12/12/21 21:10 Dose: 6 mg Documented By: CHARLINE Methylprednisolone Sodium Succinate (Methylprednisolone Sod Succ 40 Mg/Ml Vial) 40 mg IVPUSH Q12H [facility] Last Admin: 12/13/21 10:04 Dose: 40 mg Documented By: MARGARETTE Oxycodone HCl (Oxycodone Hcl Immed Release 5 Mg Tablet) 5 mg PO Q6H PRN PRN Reason: Pain, Severe (Pain Scale 7-10) Last Admin: 12/11/21 22:12 Dose: 5 mg Documented By: GLENDY Pharmacy Consult (Consult Rx Perform Med Rec) 1 each MISCELLANE ONCE PRN PRN Reason: Consult order Pharmacy Consult (Consult Rx Perform Med Rec) 1 each MISCELLANE ONCE PRN PRN Reason: Consult order Sodium Chloride (0.9 % Sodium Chloride Flush 3 Ml Syringe) 3 ml IVFLUSH QSHIFT [facility] Last Admin: 12/13/21 09:15 Dose: 3 ml Documented By: MARGARETTE Labs CBC & Chem 7: 12/13/21 06:25 12/13/21 06:25 Labs: Laboratory Results - last 24 hr 12/13/21 12/13/21 06:25 06:25 MCV 86.4 MCH 28.6 MCHC 33.2 RDW 13.5 Plt Count 269 MPV 10.0 Absolute Nucleated RBC 0.000 Nucleated RBC % (auto) 0.0 Anion Gap 11 L Estim Creat Clear Calc 108.1 Estimated GFR > 60 Fasting Glucose 130 H Calcium 8.8 D Microbiology Microbiology Results: Microbiology 12/11/21 02:59 Blood Culture - Preliminary Blood - Venous No growth after 48 hours. 12/11/21 02:59 Blood Culture - Preliminary Blood - Venous No growth after 48 hours. Assessment and Plan (1) Drug overdose: Status: Acute Plan 51M presented with ams Toxic metabolic encephalopathy due to accidental heroin overdose complicated by Severe sepsis present on admission due to aspiration pneumonia. ( tachycardia, leukocytosis, acute kidney injury) mental status back to baseline after Narcan sepsis resolved, leukocytosis improved continue ceftriaxone cultures negative COPD/mild intermittent asthma with acute decompensation methylprednisolone, uyri acute kidney injury likely prerenal resolved with iv fluids opiate overdose addiction medicine appreciated reports single use, denies dependence mood disorder continue fluoxetine DVT prophylaxis with Lovenox full code reason for continued hospitalization: still very dyspneic, on iv abx for aspiration pnuemonia, steroids and bronchodilators for copd/asthma Quality Stroke Does the patient have a stroke diagnosis?: No VTE Prior VTE?: No VTE Risk Level:: Medical - moderate - high VTE Device Contraindication: Treatment Not Indicated VTE Drug Contraindication: N/A - Med Ordered
[2021-12-13] MEDS: guaiFENesin DM 100/10/5 ML 5 ML SYRUP PO ×2 (18:17→23:03)
[2021-12-13] MEDS: Melatonin 3 MG TABLET 6 MG PO (23:04)
[2021-12-14] VITALS (7 sets, daily range): BP systolic 132–141; BP diastolic 72–89; PULSE 73–112; RESP 16–20; TEMP 36.3–37; O2SAT 93–98
--- NOTE | 2021-12-14 | ECG_ITS ---
Test Reason : overdose Blood Pressure : / mmHG Vent. Rate : 066 BPM Atrial Rate : 066 BPM P-R Int : 136 ms QRS Dur : 106 ms QT Int : 424 ms P-R-T Axes : -16 061 005 degrees QTc Int : 444 ms Normal sinus rhythm Nonspecific ST abnormality No previous ECGs available Referred By: Halle Macdonald Electronically Signed By:RAYSA ASHRAF MD
[2021-12-14] MEDS: Albuterol/Iprat 2.5/0.5MG 3 ML AMPUL.NEB INHALE ×2 (08:35→20:48)
[2021-12-14] MEDS: cefTRIAXone sodium 1 GM in 0.9 % Sodium Chloride 50 ML IV (09:36)
[2021-12-14] MEDS: methylPREDNISolone Sod Succ 40 MG/ML VIAL IVPUSH ×2 (09:36→20:14)
[2021-12-14] MEDS: guaiFENesin DM 100/10/5 ML 5 ML SYRUP PO ×3 (09:36→23:02)
[2021-12-14] MEDS: Benzonatate 100 MG CAPSULE 200 MG PO ×3 (09:36→20:17)
[2021-12-14] MEDS: FLUoxetine HCl 20 MG CAPSULE 60 MG PO (09:36)
[2021-12-14] MEDS: 0.9 % Sodium Chloride Flush 3 ML SYRINGE IVFLUSH ×3 (09:37→23:03)
[2021-12-14] MEDS: Azithromycin 500 MG TABLET PO (12:16)
[2021-12-14] MEDS: guaiFENesin LA 600 MG TAB.ER.12H PO ×2 (12:16→20:17)
--- NOTE | 2021-12-14 13:24 | MHC.CM.PN ---
Male 51 DX ETOH W/D No discharge planned today. DP home with community resources provided by the recovery team. Patient will arrange for transportation.
--- NOTE | 2021-12-14 13:53 | HO.PM.IMPN ---
Subjective Subjective Date of Service: 12/14/21 Interval History: the patient was seen and evaluated this morning Laying in bed, Complaining of significant cough and dyspnea on exertion reporting chest pain No reported other overnight events. Systemic review: No fever, chills or weakness No chest pain, palpitation No shortness of breath or coughing No abdominal pain, nausea or vomiting No urinary symptoms No any rash or wounds Physical Exam Vital Signs: Vital Signs: Last Vital Signs Temp 98.4 F 12/14/21 12:00 Pulse 79 12/14/21 12:00 Resp 20 12/14/21 12:00 BP 132/79 12/14/21 12:00 Pulse Ox 95 12/14/21 12:00 O2 Del Method 12/14/21 12:00 O2 Flow Rate 2 12/13/21 04:00 BMI result Body Mass Index 28.8 Const: Other: Constitutional : Alert, oriented, not in distress Neck : Normal inspection, Supple Cardiovascular : RRR, no JVP, no lower extremity edema Respiratory : bilateral decreased air entry with expiratory wheezes and rhonchi Gastrointestinal: soft, lax, Normal bowel sounds, Non tender Skin : Warm, Dry Neurological : Alert & oriented x3, No focal deficit , CN 2-12 within normal Objective Data Active Medications Acetaminophen (Acetaminophen 325 Mg Tablet) 650 mg PO Q6H PRN PRN Reason: Pain, Mild (Pain Scale 1-3) Albuterol/Ipratropium (Albuterol/Iprat 2.5/0.5mg 3 Ml Ampul.Neb) 3 ml INHALE RQ4H [facility] Last Admin: 12/14/21 11:34 Dose: Not Given Documented By: FARNAZ Non-Admin Reason: Patient Asleep Azithromycin (Azithromycin 500 Mg Tablet) 500 mg PO Q24H [facility] Last Admin: 12/14/21 12:16 Dose: 500 mg Documented By: MARGARETTE Benzonatate (Benzonatate 100 Mg Capsule) 200 mg PO TID [facility] Last Admin: 12/14/21 12:10 Dose: Not Given Documented By: MARGARETTE Non-Admin Reason: Previously Administered Enoxaparin Sodium (Enoxaparin Sodium 40 Mg/0.4 Ml Syringe) 40 mg SUBCUT Q24H [facility] Last Admin: 12/14/21 02:19 Dose: Not Given Documented By: GIOVANNI Non-Admin Reason: Patient Refused Fluoxetine HCl (Fluoxetine Hcl 20 Mg Capsule) 60 mg PO DAILY [facility] Last Admin: 12/14/21 09:36 Dose: 60 mg Documented By: MARGARETTE Guaifenesin (Guaifenesin La 600 Mg Tab.Er.12h) 600 mg PO BID [facility] Last Admin: 12/14/21 12:16 Dose: 600 mg Documented By: MARGARETTE Guaifenesin/Dextromethorphan (Guaifenesin Dm 100/10/5 Ml 5 Ml Syrup) 5 ml PO Q4H PRN PRN Reason: cough Last Admin: 12/14/21 09:36 Dose: 5 ml Documented By: MARGARETTE Ceftriaxone Sodium 1 gm/ (Sodium Chloride) 50 mls @ 100 mls/hr IV Q24H [facility] Last Infusion: 12/14/21 10:10 Dose: 0 mls/hr Documented By: MARGARETTE Melatonin (Melatonin 3 Mg Tablet) 6 mg PO BEDTIME PRN PRN Reason: Insomnia Last Admin: 12/13/21 23:04 Dose: 6 mg Documented By: GIOVANNI Methylprednisolone Sodium Succinate (Methylprednisolone Sod Succ 40 Mg/Ml Vial) 40 mg IVPUSH Q12H [facility] Last Admin: 12/14/21 09:36 Dose: 40 mg Documented By: MARGARETTE Pharmacy Consult (Consult Rx Perform Med Rec) 1 each MISCELLANE ONCE PRN PRN Reason: Consult order Pharmacy Consult (Consult Rx Perform Med Rec) 1 each MISCELLANE ONCE PRN PRN Reason: Consult order Sodium Chloride (0.9 % Sodium Chloride Flush 3 Ml Syringe) 3 ml IVFLUSH QSHIFT [facility] Last Admin: 12/14/21 09:37 Dose: 3 ml Documented By: MARGARETTE Labs CBC & Chem 7: 12/13/21 06:25 12/13/21 06:25 Assessment and Plan (1) Drug overdose: Status: Acute (2) Pneumonia: Status: Acute (3) COPD exacerbation: Status: Acute Plan 51M presented with altered mentation after drug overdose Toxic metabolic encephalopathy due to accidental heroin overdose complicated by Severe sepsis present on admission due to aspiration pneumonia. ( tachycardia, leukocytosis, acute kidney injury) mental status back to baseline after Narcan sepsis resolved, leukocytosis improved continue ceftriaxone with p.o. azithromycin Start cough medication cultures negative COPD/mild intermittent asthma with acute decompensation methylprednisolone, duonebs acute kidney injury likely prerenal resolved with iv fluids opiate overdose addiction medicine appreciated reports single use, denies dependence mood disorder continue fluoxetine DVT prophylaxis with Lovenox full code reason for continued hospitalization: still very dyspneic, on iv abx for aspiration pnuemonia, steroids and bronchodilators for copd/asthma to prevent possible decompensation to acute hypoxic respiratory failure Quality Stroke Does the patient have a stroke diagnosis?: No VTE Prior VTE?: No VTE Risk Level:: Medical - moderate - high VTE Device Contraindication: Treatment Not Indicated VTE Drug Contraindication: N/A - Med Ordered
[2021-12-14] MEDS: Ibuprofen 400 MG TABLET PO (14:10)
[2021-12-14] MEDS: Melatonin 3 MG TABLET 6 MG PO (23:01)
[2021-12-15] VITALS: BP 141/72; PULSE 79; RESP 17; TEMP 37; O2SAT 93
[2021-12-15] MEDS: guaiFENesin DM 100/10/5 ML 5 ML SYRUP PO (04:17)
[2021-12-15 07:42] VITALS: BP 145/90; PULSE 68; RESP 18; TEMP 36.6; O2SAT 95
[2021-12-15] MEDS: Albuterol/Iprat 2.5/0.5MG 3 ML AMPUL.NEB INHALE ×2 (07:57→11:13)
[2021-12-15 07:59] VITALS: PULSE 78; RESP 18; O2SAT 97
[2021-12-15] MEDS: Benzonatate 100 MG CAPSULE 200 MG PO (08:21)
[2021-12-15] MEDS: guaiFENesin LA 600 MG TAB.ER.12H PO (08:21)
[2021-12-15] MEDS: methylPREDNISolone Sod Succ 40 MG/ML VIAL IVPUSH (08:22)
[2021-12-15] MEDS: cefTRIAXone sodium 1 GM in 0.9 % Sodium Chloride 50 ML IV (08:22)
[2021-12-15] MEDS: 0.9 % Sodium Chloride Flush 3 ML SYRINGE IVFLUSH (08:23)
--- NOTE | 2021-12-15 10:07 | PM.DS ---
DS: Providers Provider Date of Service: 12/15/21 Date of admission: 12/11/21 03:56 Primary care physician: Unknown Physician Consults: 12/11/21 03:56 Addiction Medicine Routine Consulting Provider: Siria Fink Reason for consultation: Heroin overdose DS: Diagnosis Discharge Diagnosis (1) Drug overdose: Status: Acute (2) Pneumonia: Status: Acute (3) COPD exacerbation: Status: Acute (4) Toxic metabolic encephalopathy: Status: Acute (5) Sepsis: Status: Acute DS: Summary Hospital Course Hospital Course: admission note HPI 51-year-old male with a past medical history of asthma, opiate dependence presented to the hospital after being found unresponsive at home.? Patient mentioned that he uses heroin frequently.? Today he was found in the basement unresponsive.? Patient was given Narcan 7 mg total.? Followed by patient became alert and awake.? Subsequently brought into the ER for further evaluation.? Patient denies any fever chills cough.? Denies any chest pain or palpitations.? Denies any nausea vomiting or diarrhea.? Review of all other systems is negative except mentioned above Per ER team patient currently alert and awake; exam nonfocal; but noted to have hypoxic to 90% on room air; chest x-ray showed findings concerning for pneumonia; given gentle IV fluids and started on antibiotics.? Also noted to have leukocytosis of 25 and elevated kidney function of 2.0.? Admitted for further management. Hospital course The patient was admitted to the hospital for evaluation of toxic metabolic encephalopathy due to accidental herion overdose. The patient recovered to his baseline mentation after using Narcan. Treated with IV antibiotics for aspiration pneumonia as his blood cultures remain negative during the hospital stay. He will be discharged on azithromycin and Ceftin to finish total of 1 week of antibiotics. He was treated as well for reactive airway disease and possible chemical pneumonitis with nebulizers and IV steroids. To be discharged home tapering dose of steroids and as needed albuterol inhaler. Noted to have acute kidney injury at time of presentation which is likely prerenal. Improved back to normal baseline with IV fluid usage. Continue prednisone tapering dose as prescribed Continue antibiotic for the next 3 days Use albuterol inhaler as needed for wheezing To follow-up with PCP as outpatient to arrange for pulmonary function test Time Spent with Patient Time attestation: Total time spent providing and/or coordinating discharge services: Discharge coordination time: Greater than 30 minutes Quality: Safe Use of Opioids Does Pt have an Active Cancer Diagnosis on the Problem List?: No Quality: Stroke Does the patient have a stroke diagnosis?: No Physical Exam Vital Signs: Vital Signs: Last Vital Signs Temp 97.9 F 12/15/21 07:42 Pulse 78 12/15/21 07:59 Resp 18 12/15/21 07:59 BP 145/90 H 12/15/21 07:42 Pulse Ox 95 12/15/21 07:42 O2 Del Method 12/15/21 07:42 O2 Flow Rate 2 12/13/21 04:00 BMI result Body Mass Index 28.8 Const: Other: Constitutional : Alert, oriented, not in distress Neck : Normal inspection, Supple Cardiovascular : RRR, no JVP, no lower extremity edema Respiratory : fair bilateral air entry, no crackles, Bilateral scattered expiratory wheezes Gastrointestinal: soft, lax, Normal bowel sounds, Non tender Skin : Warm, Dry Neurological : Alert & oriented x3, No focal deficit , CN 2-12 within normal DS: Data Data Completed and Pending Labs on day of discharge: Preliminary micro results at discharge 12/11/21 02:59 Blood Culture - Preliminary Blood - Venous No growth after 48 hours. 12/11/21 02:59 Blood Culture - Preliminary Blood - Venous No growth after 48 hours. Discharge Plan Discharge Patient Disposition: Home, Self-Care Discharge Diagnosis: aspiration pneumonia reactive airway disease Drug overdose Referrals: Physician,Unknown J [Primary Care Provider] - 1 Week Discharge Medications: New azithromycin 500 mg Tablet 500 mg PO Q24H 3 Days Qty: 3 0RF cefuroxime axetil 500 mg tablet 500 mg PO BID Qty: 6 0RF prednisone 10 mg tablet See Taper PO DAILY Qty: 30 0RF Taper: Prednisone 40 mg daily for 3 Days and 0 Hour 30 mg daily for 3 Days and 0 Hour 20 mg daily for 3 Days and 0 Hour 10 mg daily for 3 Days and 0 Hour benzonatate 100 mg Capsule 200 mg PO TID 10 Days Qty: 60 0RF guaifenesin [Mucinex] 600 mg Tablet Extended Release 12hr 600 mg PO BID 10 Days Qty: 20 0RF Continued fluoxetine 20 mg Capsule 60 mg PO DAILY albuterol sulfate 90 mcg/actuation HFA aerosol inhaler 1 inh inhalation QID PRN (Reason: shortness of breath or wheezing) Qty: 6.7 0RF Discharge Orders: Discharge Order (Routine); Ordered 12/15/21 Ordered By: Halle Macdonald Activity on Discharge: As tolerated Stand Alone Forms: Patient Portal Discharge page, Work/School Release Care Plan Goals: Read below Health Concerns: Read below Plan of Treatment: Read below Assessment: you were admitted to the hospital after a drug overdose by accident. You were noticed to have aspiration with difficulty breathing. Treated for reactive airway disease and possible pneumonia with steroids, antibiotics and nebulizers with good response over the course of hospital stay. Continue prednisone tapering dose as prescribed Continue antibiotic for the next 3 days Use albuterol inhaler as needed for wheezing To follow-up with PCP as outpatient to arrange for pulmonary function test
[2021-12-15] MEDS: Azithromycin 500 MG TABLET PO (11:02)
[2021-12-15] MEDS: FLUoxetine HCl 20 MG CAPSULE 60 MG PO (11:02)
[2021-12-15 11:15] VITALS: PULSE 95; RESP 20; O2SAT 98
--- NOTE | 2021-12-15 12:05 | MHC.CM.PN ---
Male 51 DX Heroin OD He is discharged to home today no services. He has arranged for transportation home.
== END 2021-12-15 11:42 | disposition home or self-care (01) | DRG 816 ==
LOC: HO.ED 04:05 → HO.EDOVER 04:12 → HO.IMC 12-12 07:59
PROVIDERS: Internal Medicine; Admitting Provider Hospitalist; Emergency Provider Emergency Medicine Emergency Medical Services; Visit Provider Student in an Organized Health Care Education/Training Program
DX: T40.1X1A Poisoning by heroin, accidental (unintentional), initial encounter (principal); R65.20 Severe sepsis without septic shock; J69.0 Pneumonitis due to inhalation of food and vomit; A41.9 Sepsis, unspecified organism; G92.8 Other toxic encephalopathy; N17.9 Acute kidney failure, unspecified; F11.20 Opioid dependence, uncomplicated; F39 Unspecified mood [affective] disorder; J44.1 Chronic obstructive pulmonary disease with (acute) exacerbation; J45.20 Mild intermittent asthma, uncomplicated; Z28.310 Unvaccinated for COVID-19; Z20.822 Contact with and (suspected) exposure to COVID-19; Z79.899 Other long term (current) drug therapy
CPT/HCPCS: 36415; 71045; 80048; 80076; 82077; 83605; 83735; 85025; 85027; 86704; 86706; 86803; 87040; 87340; 87635; 93005; 94640; 96361; 96365; 99285; J0696; J2920

== ENCOUNTER 2023-05-09 10:10 | Emergency (ER) | payer BC, SELFPAY ==
--- NOTE | ~2023-05-09 | XR_ITS ---
EXAMINATION: XR ANKLE, RIGHT CLINICAL INFORMATION: Right ankle swelling and pain. COMPARISON: 06/10/2013 TECHNIQUE: AP, lateral, and mortise views of the right ankle. FINDINGS: Alignment is anatomic. No displaced fracture or dislocation. Joint spaces are maintained. Posterior and plantar calcaneal spurs. XR/XR ankle RT min 3V IMPRESSION: No acute abnormality.
[2023-05-09 11:08] VITALS: BP 100/71; PULSE 84; RESP 16; TEMP 36.6; O2SAT 98; BMI 29.3
--- NOTE | 2023-05-09 12:58 | PC.NURSE ---
Addendum entered by Andreina Ricketts LPN 05/09/23 12:58: pt refuses crutches at this time Original Note: pt rrefusu
--- NOTE | 2023-05-09 13:14 | ED.LOWEXIN ---
HPI - Extremity Injury (Lower) General Chief Complaint: Extremity Injury, Lower Stated Complaint: R ankle inj Time Seen by Provider: 05/09/23 12:46 History of Present Illness HPI Narrative: patient complains of right ankle pain and swelling after an injury when he stepped off a curb 4 days ago, he has been limping on it but is very on comfort, he denies any other injury Denies laceration denies numbness weakness or tingling no neck pain no back pain no head injury, he did not fall but he did twist the ankle Related Data Home Medications Medication Instructions Recorded Confirmed fluoxetine 20 mg capsule 60 mg PO DAILY 12/11/21 12/11/21 Previous Rx's Medication Instructions Recorded albuterol sulfate 90 mcg/actuation 1 inh inhalation QID PRN shortness 12/15/21 aerosol inhaler of breath or wheezing #6.7 grams azithromycin 500 mg tablet 500 mg PO Q24H 3 days #3 tabs 12/15/21 benzonatate 100 mg capsule 200 mg (2 x 100 mg) PO TID 10 days 12/15/21 #60 caps cefuroxime axetil 500 mg tablet 500 mg PO BID #6 tabs 12/15/21 guaifenesin 600 mg tablet, 600 mg PO BID 10 days #20 tabs 12/15/21 extended release 12 hr (Mucinex) prednisone 10 mg tablet See Taper PO DAILY #30 tabs 12/15/21 acetaminophen 500 mg tablet 1,000 mg (2 x 500 mg) PO QID PRN 05/09/23 pain #30 tabs ibuprofen 600 mg tablet 600 mg PO Q6H PRN pain #20 tabs 05/09/23 oxycodone 5 mg tablet 5 mg PO Q6H PRN pain #12 tabs 05/09/23 Allergies Allergy/AdvReac Type Severity Reaction Status Date / Time No Known Allergies Allergy Verified 05/09/23 11:08 [facility] Past Medical History Source: nursing notes reviewed Social History Social History Household Members: Family Housing: House Do you presently have visiting nurse or other home services: No Alcohol intake: never Patient Tobacco Use Status: Never used Tobacco Substance Use Type: Heroin and Marijuana Physical Exam Vital Signs: Vital Signs: Last Vital Signs Temp 98 F 05/09/23 11:08 Pulse 84 05/09/23 11:08 Resp 16 05/09/23 11:08 BP 100/71 05/09/23 11:08 Pulse Ox 98 05/09/23 11:08 O2 Del Method Room Air 05/09/23 11:08 BMI result Body Mass Index 29.3 general appearance no distress Head is normocephalic atraumatic Neck is supple nontender Respiratory no distress The back is full range of motion The right ankle is tender and swollen with ecchymosis on both sides of the ankle, there is tenderness both medial and lateral there is swelling, neurovascular intact distal Other extremities normal Course Course Course Narrative: x-ray of right ankle did not show any fracture, alignment was anatomic He had full range of motion in the knee full range of motion in the toes tenderness and swelling was around the ankle is diagnosed with ankle sprain Will follow with orthopedics as needed and is discharged, patient refused crutches Discharge Plan Discharge Clinical Impression: Right ankle sprain Additional Instructions: apply ice, elevate leg If failure to improve after 1 week follow with orthopedics for further evaluation Return any time any worse condition or any concerns Prescriptions: New acetaminophen 500 mg tablet 1,000 mg PO QID PRN (Reason: pain) Qty: 30 0RF ibuprofen 600 mg tablet 600 mg PO Q6H PRN (Reason: pain) Qty: 20 0RF oxycodone 5 mg tablet 5 mg PO Q6H PRN (Reason: pain) Qty: 12 0RF Rx Instructions: Partial Fill upon patient request. No Action fluoxetine 20 mg Capsule 60 mg PO DAILY azithromycin 500 mg Tablet 500 mg PO Q24H 3 Days Qty: 3 0RF cefuroxime axetil 500 mg tablet 500 mg PO BID Qty: 6 0RF prednisone 10 mg tablet See Taper PO DAILY Qty: 30 0RF Taper: Prednisone 40 mg daily for 3 Days and 0 Hour 30 mg daily for 3 Days and 0 Hour 20 mg daily for 3 Days and 0 Hour 10 mg daily for 3 Days and 0 Hour benzonatate 100 mg Capsule 200 mg PO TID 10 Days Qty: 60 0RF guaifenesin [Mucinex] 600 mg Tablet Extended Release 12hr 600 mg PO BID 10 Days Qty: 20 0RF albuterol sulfate 90 mcg/actuation HFA aerosol inhaler 1 inh inhalation QID PRN (Reason: shortness of breath or wheezing) Qty: 6.7 0RF Referrals: Hemant Chacon MD [Physician] - ( right ankle injury) Stand Alone Forms: Work/School Release
== END 2023-05-09 13:30 | disposition home or self-care (01) ==
PROVIDERS: Emergency Provider Student in an Organized Health Care Education/Training Program; PCP Internal Medicine
DX: S93.401A Sprain of unspecified ligament of right ankle, initial encounter (principal); X50.1XXA Overexertion from prolonged static or awkward postures, initial encounter; Y93.9 Activity, unspecified; Y92.480 Sidewalk as the place of occurrence of the external cause; Y99.9 Unspecified external cause status
CPT/HCPCS: 73610; 99283

== ENCOUNTER 2024-04-29 11:54 | Emergency (ER) | payer OTHER, SELFPAY ==
[2024-04-29] VITALS (9 sets, daily range): BP systolic 96–137; BP diastolic 68–88; PULSE 96–109; RESP 20–26; TEMP 36.5–36.9; O2SAT 90–100; BMI 30.1
--- NOTE | ~2024-04-29 | XR_ITS ---
EXAMINATION: XR CHEST CLINICAL INFORMATION: Cough COMPARISON: 12/11/21 TECHNIQUE: 2 views of the chest were obtained. FINDINGS: No significant abnormality is noted involving the heart, lungs, mediastinum, bony thorax or soft tissues. XR/XR chest 2V IMPRESSION: Unremarkable examination. Electronically signed by: Moody Rodriguez MD 04/29/2024 01:41 PM EDT RP
--- NOTE | 2024-04-29 11:57 | ED_ITS ---
HPI - SOB/Dyspnea General Chief Complaint: Upper Respiratory Symptoms Stated Complaint: SOB Time Seen by Provider: 04/29/24 13:04 Source: patient Mode of arrival: ambulatory Limitations: no limitations History of Present Illness ED Provider: DR. Bar HPI Narrative: 53 year male history of COPD, came in 2 days of dry cough and shortness of breath, patient has coughing fits that make him pass out x2 in the last 2 days, no sick contacts, no recent travel, no lower extremity swelling or tenderness. patient is nonsmoker. No recent travel, no lower extremity swelling or tenderness Related Data Home Medications ?Medication ?Instructions ?Recorded ?Confirmed fluoxetine 20 mg capsule 60 mg PO DAILY 12/11/21 12/11/21 Previous Rx's ?Medication ?Instructions ?Recorded albuterol sulfate 90 mcg/actuation 1 inh inhalation QID PRN shortness 12/15/21 aerosol inhaler of breath or wheezing #6.7 grams azithromycin 500 mg tablet 500 mg PO Q24H 3 days #3 tabs 12/15/21 benzonatate 100 mg capsule 200 mg (2 x 100 mg) PO TID 10 days 12/15/21 #60 caps cefuroxime axetil 500 mg tablet 500 mg PO BID #6 tabs 12/15/21 guaifenesin 600 mg tablet, 600 mg PO BID 10 days #20 tabs 12/15/21 extended release 12 hr (Mucinex) prednisone 10 mg tablet See Taper PO DAILY #30 tabs 12/15/21 acetaminophen 500 mg tablet 1,000 mg (2 x 500 mg) PO QID PRN 05/09/23 pain #30 tabs ibuprofen 600 mg tablet 600 mg PO Q6H PRN pain #20 tabs 05/09/23 oxycodone 5 mg tablet 5 mg PO Q6H PRN pain #12 tabs 05/09/23 albuterol sulfate 90 mcg/actuation 2 puff inhalation QID PRN 04/29/24 aerosol inhaler shortness of breath or wheezing #8.5 grams azithromycin 250 mg tablet See Rx Instructions PO .COMPLEX #6 04/29/24 (Zithromax Z-Benjamín) tabs codeine 10 mg-guaifenesin 100 mg/5 5 ml PO Q6H PRN cough #120 mL 04/29/24 mL oral liquid prednisone 20 mg tablet 20 mg PO BID #10 tabs 04/29/24 Allergies Allergy/AdvReac Type Severity Reaction Status Date / Time No Known Allergies Allergy Verified 04/29/24 11:59 Review of Systems 2 Review of Systems: All other systems are reviewed and are negative Constitutional: Reports as per HPI and Reports no additional constitutional complaints Eyes: Reports as per HPI and Reports no additional eye complaints Reports system reviewed and no additional complaints, except as documented Cardiovascular: Reports as per HPI and Reports no additional cardiovascular complaints Respiratory: Reports as per HPI and Reports no additional respiratory complaints Gastrointestinal: Reports as per HPI and Reports no additional gastrointestinal complaints Genitourinary: Reports no additional female genitourinary complaints Musculoskeletal: Reports no additional musculoskeletal complaints Skin/Breast: Reports system reviewed and no additional complaints, except as docu Psychiatric: Reports no additional psychiatric complaints Endocrine: Reports no additional endocrine complaints Hematologic/Lymphatic: Reports no additional hematologic/lymphatic complaints Allergic/Immunologic: Reports no additional allergic/immunologic complaints Reports system reviewed and no additional complaints, except as documented and Reports Abnormal speech present [facility] Social History Social History Household Members: Family Housing: House Do you presently have visiting nurse or other home services: No Alcohol intake: current Patient Tobacco Use Status: Never used Tobacco Smoked in Last 30 Days: No Use of substances other than those prescribed or required for medical reasons: No Substance Use Type: Heroin and Marijuana Advance Directives: No Advance Directives Information Provided: Yes Do you have a plan to hurt others: No Plan Physical Exam 2 Vital Signs: Vital Signs: Last Vital Signs Temp 98.5 F 04/29/24 15:11 Pulse 105 H 04/29/24 15:11 Resp 22 H 04/29/24 15:11 BP 98/71 04/29/24 15:11 Pulse Ox 99 04/29/24 15:11 O2 Del Method Room Air 04/29/24 15:11 BMI result Body Mass Index 30.1 Vital signs have been reviewed and appear to be correct. Blood pressure elevated. Heart rate normal. Respiratory rate normal. Temperature normal. Oxygen saturation normal. Appearance: anxious,Alert. Oriented X3. No acute distress. Head: Normal external exam. Normocephalic. Atraumatic. No Suazo signs noted. No raccoon eyes noted Eyes: PERRLA. EOMI. Conjunctiva and sclera normal. Eyelids normal. ENT: TM's Normal. Pharynx normal. Uvula midline. Moist mucous membranes. No trismus noted. No drooling noted. No muffled voice noted. Neck: Normal inspection. Neck supple. FROM. No adenopathy. Thyroid Normal. No meningeal signs. No neck mass noted. CVS: Normal heart rate and rhythm. Heart sound normal. No murmurs noted. Pulses normal throughout. Respiratory: No respiratory distress. Painless inspiration. diminished breathing sounds bilaterally, expiratory wheezing with prolonged expiration. Chest nontender. No accessory muscle usage noted or decreased air movement noted. Abdomen: Soft and nontender. Bowel sounds normal in all 4 quadrants. No distention noted. No organomegaly noted. No visible injury noted. Back: No CVA tenderness. Full range of motion noted. Skin: Skin warm and dry. Normal skin color. Normal skin turgor. No rashes/lesions/lacerations noted. Extremities: No lower extremity edema. Extremities exhibit normal range of motion. Extremities nontender. Neuro: Oriented X 3. Cranial nerve exam: II-XII are grossly intact No motor deficit. No sensory deficit. Reflexes normal. Course Course Course Narrative: This is a Rapid Medical Exam performed in triage by Luz Maria Breen PA-C. Full HPI, ROS and PE to be performed by primary ED provider. 53 yo M presenting to the ED c/o dry cough, SOB and syncopal episodes with coughing fits x couple days. Has has 2 syncopal episodes. denies CP. denies hitting head with syncopal episodes PE: + dry cough appreciated. Diffuse expiratory wheeze. Plan: EKG, labs, CXR, ED bronch protocol Reevaluation(s) Reevaluation #1: 53-year-old male came in with dry cough and coughing fit lead to syncope, patient in the emergency department appeared very anxious required 2 mg of Ativan inpatient start calm down, able to breathe more comfortably, O2 sat is 99% on room air, post exertion O2 sat was 100%, patient remained on high-flow oxygen in the emergency department for about 30 minutes, respiratory rate when he calm is 16 per minute. Patient is stable to be discharged home will discharge on codeine for cough control, Z-Benjamín, prednisone, and bronchodilator with instruction to seek immediate medical attention if worsening of symptoms. Time: 15:28 Medications Administered Generic Name Dose Route Start Last Admin Trade Name Eduinq PRN Reason Stop Dose Admin Guaifenesin/Codeine Phosphate 10 ml 04/29/24 14:25 04/29/24 14:58 Guaifen/Codeine Sf 200/20/10ml 10 Ml Liquid PO 10 ml Q6H PRN Administration Cough Discontinued Medications Generic Name Dose Route Start Last Admin Trade Name Eduinq PRN Reason Stop Dose Admin Albuterol Sulfate 5 mg/ 0 mg 04/29/24 12:31 04/29/24 12:34 Albuterol/Ipratropium 3 ml INHALE 04/29/24 12:32 1 each ONCE ONE Administration Albuterol Sulfate 5 mg/ 0 mg 04/29/24 13:03 04/29/24 13:06 Albuterol/Ipratropium 3 ml INHALE 04/29/24 13:04 1 each ONCE ONE Administration Lorazepam 2 mg 04/29/24 13:28 04/29/24 13:29 Lorazepam 2 Mg/Ml Vial IVPUSH 04/29/24 13:29 2 mg ONCE ONE Administration Methylprednisolone Sodium Succinate 125 mg 04/29/24 13:06 04/29/24 13:22 Methylprednisolone Sod Succ 125 Mg/2 Ml Vial IVPUSH 04/29/24 13:07 125 mg ONCE ONE Administration Medical Decision Making Differential Diagnosis Differential Diagnoses: The differential diagnosis associated with the presentation includes ( Pneumonia, pneumothorax, pleural effusion, bronchitis, pulmonary embolism, ACS.) Admission/Observation Consideration of admission/observation: Escalation of care including admission/observation considered Lab Data MDM Lab Attestation statement: I reviewed the patient's lab results. 04/29/24 13:04 04/29/24 13:04 Labs: Lab Results 04/29/24 04/29/24 Range/Units 13:04 13:11 WBC 11.2 H (4.8-10.8) X10*3/uL RBC 5.24 (4.60-5.80) X10*6/uL Hgb 15.1 (14.0-18.0) g/dl Hct 44.9 (42.0-52.0) % MCV 85.7 (80.0-98.0) fL MCH 28.8 (27.0-33.0) pg MCHC 33.6 (31.0-36.0) g/dl RDW 13.5 (11.0-16.0) % Plt Count 284 (160-400) X10*3/uL MPV 9.7 (9.4-12.4) fL Immature Gran % (Auto) 0.4 (0.0-0.4) % Neut % (Auto) 57.1 (45-73) % Lymph % (Auto) 20.3 (20-40) % [place] % (Auto) 12.8 H (2-11) % Eos % (Auto) 8.3 H (0-4) % Baso % (Auto) 1.1 (0-2) % Lymph # (Auto) 2.3 (1.2-4.9) X10*3/uL [place] # (Auto) 1.4 H (0.1-1.2) X10*3/uL Eos # (Auto) 0.9 H (0.0-0.4) X10*3/uL Baso # (Auto) 0.1 (0.0-0.2) X10*3/uL Abs Immat Gran (auto) 0.04 H (0.00-0.03) X10*3/uL Absolute Neuts (auto) 6.4 (2.0-8.3) x10*3/uL Absolute Nucleated RBC 0.000 (0.0-0.012) X10*3/uL Nucleated RBC % (auto) 0.0 (0.0-0.2) /100WBC PT 12.5 H (10.9-12.4) SEC INR 1.1 (0.9-1.1) D-Dimer High Sensitivty < 150 NG/ML VBG pH 7.39 (7.32-7.43) VBG pCO2 42 mmHg VBG pO2 48 mmHg VBG HCO3 26 (22-26) mmol/L VBG O2 Saturation 75.0 % VBG Base Excess 0.9 mmol/L Sodium 144 (135-145) mmol/L Potassium 3.3 (3.3-5.1) mmol/L Chloride 108 (96-108) mmol/L Carbon Dioxide 25 (22-29) mmol/L Anion Gap 14 (12-20) BUN 16 (9-16) mg/dL Creatinine 1.20 (0.5-1.4) mg/dL Estim Creat Clear Calc 82.4 Estimated GFR > 60 Random Glucose 124 H (60-115) mg/dL Calcium 9.2 (8.4-10.2) mg/dL Magnesium 1.8 (1.6-2.6) mg/dL Total Bilirubin 0.3 (0.0-1.0) mg/dL Direct Bilirubin 0.1 (0.0-0.5) mg/dL AST 33 (5-37) U/L ALT 27 (0-40) U/L Alkaline Phosphatase 69 (39-117) U/L Troponin I High Sens 6.4 (<3.5-35.0) ng/L Total Protein 6.7 (6.5-8.0) g/dL Albumin 4.0 (3.5-5.0) g/dL Independent Interpretation I performed an independent interpretation of an: Plain X-Ray ( chest: No acute intrathoracic pathology.) Radiology Impression Discussion of test interpretation with radiology: I have reviewed the radiologist's reading. Discharge Plan Discharge Clinical Impression: Anxiety, Bronchopneumonia Patient Disposition: Home, Self-Care Instructions: Acute Bronchitis (ED) Prescriptions: New codeine-guaifenesin 10-100 mg/5 mL liquid 5 ml PO Q6H PRN (Reason: cough) Qty: 120 0RF prednisone 20 mg tablet 20 mg PO BID Qty: 10 0RF azithromycin [Zithromax Z-Benjamín] 250 mg tablet See Rx Instructions .ROUTE .COMPLEX Qty: 6 0RF Rx Instructions: For 250 mg dose pack: take 500 mg today (day 1), then 250 mg for 4 days (days 2-5) albuterol sulfate 90 mcg/actuation HFA aerosol inhaler 2 puff inhalation QID PRN (Reason: shortness of breath or wheezing) Qty: 8.5 0RF No Action fluoxetine 20 mg Capsule 60 mg PO DAILY azithromycin 500 mg Tablet 500 mg PO Q24H 3 Days Qty: 3 0RF cefuroxime axetil 500 mg tablet 500 mg PO BID Qty: 6 0RF prednisone 10 mg tablet See Taper PO DAILY Qty: 30 0RF Taper: Prednisone 40 mg daily for 3 Days and 0 Hour 30 mg daily for 3 Days and 0 Hour 20 mg daily for 3 Days and 0 Hour 10 mg daily for 3 Days and 0 Hour benzonatate 100 mg Capsule 200 mg PO TID 10 Days Qty: 60 0RF guaifenesin [Mucinex] 600 mg Tablet Extended Release 12hr 600 mg PO BID 10 Days Qty: 20 0RF albuterol sulfate 90 mcg/actuation HFA aerosol inhaler 1 inh inhalation QID PRN (Reason: shortness of breath or wheezing) Qty: 6.7 0RF acetaminophen 500 mg tablet 1,000 mg PO QID PRN (Reason: pain) Qty: 30 0RF ibuprofen 600 mg tablet 600 mg PO Q6H PRN (Reason: pain) Qty: 20 0RF oxycodone 5 mg tablet 5 mg PO Q6H PRN (Reason: pain) Qty: 12 0RF Rx Instructions: Partial Fill upon patient request. Print Language: Turkish
--- NOTE | 2024-04-29 11:58 | ECG_ITS ---
Test Reason : CHEST PAIN Blood Pressure : / mmHG Vent. Rate : 097 BPM Atrial Rate : 097 BPM P-R Int : 130 ms QRS Dur : 090 ms QT Int : 362 ms P-R-T Axes : 071 061 032 degrees QTc Int : 459 ms Normal sinus rhythm Normal ECG When compared with ECG of 14-DEC-2021 08:33, No significant changes seen Referred By: Luz Maria Breen Electronically Signed By:MIGUEL ANGEL PENN
[2024-04-29] MEDS: Albuterol Sulfate 5 MG, Albuterol/Iprat 2.5/0.5MG 3 ML 3 ML INHALE ×2 (12:34→13:06)
[2024-04-29 13:08] LABS: MANUAL DIFF FLAG NO
[2024-04-29 13:09] LABS: Basophils Absolute Auto 0.1 X10*3/uL (0.0-0.2); Basophils Percent Auto 1.1 % (0-2); Eosinophils Absolute Auto 0.9 X10*3/uL (0.0-0.4); Eosinophils Percent Auto 8.3 % (0-4); Hematocrit 44.9 % (42.0-52.0); Hemoglobin 15.1 g/dl (14.0-18.0); Imm Gran Abs Auto 0.04 X10*3/uL (0.00-0.03); Imm Gran Pct Auto 0.4 % (0.0-0.4); Lymphocytes Absolute Auto 2.3 X10*3/uL (1.2-4.9); Lymphocytes Percent Auto 20.3 % (20-40); Mean Corpuscular HGB Conc 33.6 g/dl (31.0-36.0); Mean Corpuscular Hemoglobin 28.8 pg (27.0-33.0); Mean Corpuscular Volume 85.7 fL (80.0-98.0); Mean Platelet Volume 9.7 fL (9.4-12.4); Monocytes Absolute Auto 1.4 X10*3/uL (0.1-1.2); Monocytes Percent Auto 12.8 % (2-11); Neutrophils Absolute Auto 6.4 x10*3/uL (2.0-8.3); Neutrophils Percent Auto 57.1 % (45-73); Platelet Count 284 X10*3/uL (160-400); Red Blood Count 5.24 X10*6/uL (4.60-5.80); Red Cell Distribution Width 13.5 % (11.0-16.0); White Blood Count 11.2 X10*3/uL (4.8-10.8)
[2024-04-29 13:14] LABS: VBG Base Excess 0.9 mmol/L; VBG HCO3 26 mmol/L (22-26); VBG pCO2 42 mmHg; VBG pH 7.39 (7.32-7.43); VBG pO2 48 mmHg
[2024-04-29 13:15] LABS: Venous Blood Gas Refer to POC result
[2024-04-29 13:19] LABS: INTERNATIONAL NORM RATIO 1.1 (0.9-1.1); Prothrombin Time 12.5 SEC (10.9-12.4)
[2024-04-29] MEDS: methylPREDNISolone Sod Succ 125 MG/2 ML VIAL IVPUSH (13:22)
[2024-04-29 13:27] LABS: Alanine Aminotransferase 27 U/L (0-40); Alkaline Phosphatase 69 U/L (39-117); Anion Gap 14 (12-20); Aspartate Amino Transferase 33 U/L (5-37); Bilirubin Direct 0.1 mg/dL (0.0-0.5); Bilirubin Total 0.3 mg/dL (0.0-1.0); Blood Urea Nitrogen 16 mg/dL (9-16); Calcium 9.2 mg/dL (8.4-10.2); Carbon Dioxide 25 mmol/L (22-29); Chloride 108 mmol/L (96-108); Creatinine Clr Calc Pharmacy 82.4; Estimated Glomerular Filt Rate > 60; Glucose Random 124 mg/dL (60-115); Magnesium 1.8 mg/dL (1.6-2.6); Potassium 3.3 mmol/L (3.3-5.1); Sodium 144 mmol/L (135-145); Total Protein 6.7 g/dL (6.5-8.0)
[2024-04-29] MEDS: LORazepam 2 MG/ML VIAL IVPUSH (13:29)
[2024-04-29 13:36] LABS: Troponin-I High Sensitivity 6.4 ng/L (<3.5-35.0)
[2024-04-29 14:14] LABS: D Dimer High Sensitivity < 150 NG/ML
[2024-04-29] MEDS: guaiFEN/Codeine SF 200/20/10ML 10 ML LIQUID PO (14:58)
--- NOTE | 2024-04-29 14:58 | PC.NURSE ---
high flow off. pt coughing and guaifenesin given
[2024-04-29 16:46] LABS: Influenza A PCR NEGATIVE (Negative); Influenza B PCR NEGATIVE (Negative); Resp Syncy Virus RNA Qual PCR NEGATIVE (Negative); SARS COV2 PCR INHOUSE NEGATIVE (Negative)
== END 2024-04-29 15:30 | disposition home or self-care (01) ==
PROVIDERS: Physician Assistant; Emergency Provider Emergency Medicine
DX: J18.0 Bronchopneumonia, unspecified organism (principal); R06.02 Shortness of breath; R07.89 Other chest pain; R05.9 Cough, unspecified; F41.9 Anxiety disorder, unspecified; Z03.818 Encounter for observation for suspected exposure to other biological agents ruled out; Z79.899 Other long term (current) drug therapy
CPT/HCPCS: 0241U; 36415; 71046; 80048; 80076; 82803; 83735; 84484; 85025; 85379; 85610; 93005; 94640; 96374; 96375; 99284; 99285; J2060; J2919

== ENCOUNTER → 2024-04-29 11:58 | Outpatient (BNV) | payer OTHER, SELFPAY | PROVIDERS: Emergency Provider Emergency Medicine; Visit Provider Internal Medicine | DX: R07.9 Chest pain, unspecified (principal) | CPT/HCPCS: 93010 ==

== ENCOUNTER 2024-05-05 12:04 | Emergency (ER) | payer OTHER, SELFPAY ==
--- NOTE | ~2024-05-05 | XR_ITS ---
EXAMINATION: XR CHEST CLINICAL INFORMATION: Coughing COMPARISON: 04/29/24, 12/11/21 TECHNIQUE: Frontal view of the chest was obtained. FINDINGS: No significant abnormality is noted involving the heart, lungs, mediastinum, bony thorax or soft tissues. XR/XR chest 1V IMPRESSION: Unremarkable examination. Electronically signed by: Moody Rodriguez MD 05/05/2024 03:27 PM [facility] [place]
[2024-05-05 12:47] VITALS: BP 116/83; PULSE 92; RESP 18; TEMP 36.5; BMI 29.5
--- NOTE | 2024-05-05 12:58 | ECG_ITS ---
Test Reason : SOB Blood Pressure : / mmHG Vent. Rate : 076 BPM Atrial Rate : 076 BPM P-R Int : 130 ms QRS Dur : 096 ms QT Int : 392 ms P-R-T Axes : -10 046 032 degrees QTc Int : 441 ms Normal sinus rhythm Normal ECG When compared with ECG of 29-APR-2024 11:59, No significant change was found Referred By: Zane Newman Electronically Signed By:RAYSA ASHRAF MD
--- NOTE | 2024-05-05 13:02 | ED_ITS ---
HPI - General Adult General Chief complaint: Upper Respiratory Symptoms Stated complaint: diff breathing Time Seen by Provider: 05/05/24 17:15 Source: patient, RN notes reviewed and old records reviewed Mode of arrival: ambulatory History of Present Illness ED Provider: Luz Maria Breen PA-C HPI narrative: 53-year-old male with a past medical history opiate dependence, bronchopneumonia, presenting to ED complaining of persistent dry cough & SOB x1 week. Patient was evaluated in our ED on 04/29 for similar symptoms, had labs and x-ray which were unremarkable, was discharged home on Prednisone, Zithromax, Codeine/Guaifenesin and Albuterol inhaler which he completed without relief. Denies fever, chills, chest pain, travel, pedal edema Related Data Home Medications ?Medication ?Instructions ?Recorded ?Confirmed fluoxetine 20 mg capsule 60 mg PO DAILY 12/11/21 12/11/21 Previous Rx's ?Medication ?Instructions ?Recorded albuterol sulfate 90 mcg/actuation 1 inh inhalation QID PRN shortness 12/15/21 aerosol inhaler of breath or wheezing #6.7 grams azithromycin 500 mg tablet 500 mg PO Q24H 3 days #3 tabs 12/15/21 benzonatate 100 mg capsule 200 mg (2 x 100 mg) PO TID 10 days 12/15/21 #60 caps cefuroxime axetil 500 mg tablet 500 mg PO BID #6 tabs 12/15/21 guaifenesin 600 mg tablet, 600 mg PO BID 10 days #20 tabs 12/15/21 extended release 12 hr (Mucinex) prednisone 10 mg tablet See Taper PO DAILY #30 tabs 12/15/21 acetaminophen 500 mg tablet 1,000 mg (2 x 500 mg) PO QID PRN 05/09/23 pain #30 tabs ibuprofen 600 mg tablet 600 mg PO Q6H PRN pain #20 tabs 05/09/23 oxycodone 5 mg tablet 5 mg PO Q6H PRN pain #12 tabs 05/09/23 albuterol sulfate 90 mcg/actuation 2 puff inhalation QID PRN 04/29/24 aerosol inhaler shortness of breath or wheezing #8.5 grams azithromycin 250 mg tablet See Rx Instructions PO .COMPLEX #6 04/29/24 (Zithromax Z-Benjamín) tabs codeine 10 mg-guaifenesin 100 mg/5 5 ml PO Q6H PRN cough #120 mL 04/29/24 mL oral liquid prednisone 20 mg tablet 20 mg PO BID #10 tabs 04/29/24 albuterol sulfate 90 mcg/actuation 2 puff inhalation Q4-6H PRN 05/05/24 aerosol inhaler shortness of breath or wheezing #6.7 grams amoxicillin 875 mg-potassium 1 tab PO BID 7 days #14 tabs 05/05/24 clavulanate 125 mg tablet doxycycline hyclate 100 mg tablet 100 mg PO BID 7 days #14 tabs 05/05/24 prednisone 5 mg tablets in a dose See Taper PO DIRECTED #21 ea 05/05/24 pack Allergies Allergy/AdvReac Type Severity Reaction Status Date / Time No Known Allergies Allergy Verified 05/05/24 12:49 Review of Systems 2 Review of Systems: Yes all other systems are reviewed and are negative Constitutional: Constitutional: Reports as per [facility] Past Medical History Attestation statement: The following information was validated with the patient. Source: old records reviewed Social History Social History Household Members: Family Housing: House Do you presently have visiting nurse or other home services: No Alcohol intake: current Patient Tobacco Use Status: Never used Tobacco Substance Use Type: Heroin and Marijuana Advance Directives: No Advance Directives Information Provided: No Physical Exam ED Vital Signs: Vital Signs - 24 hr 05/05/24 12:47 05/05/24 17:30 05/05/24 18:05 Temperature 97.7 F 98.6 F Pulse Rate 92 92 83 Respiratory Rate 18 18 18 Blood Pressure 116/83 115/70 Pulse Oximetry 98 Oxygen Delivery Method Room Air 05/05/24 19:08 05/05/24 20:23 05/05/24 20:29 Temperature 98.3 F 98.3 F Pulse Rate 82 103 H 103 H Respiratory Rate 18 22 H 22 H Blood Pressure 137/83 137/83 Pulse Oximetry 97 97 Oxygen Delivery Method Room Air Room Air BMI result Body Mass Index 29.5 Const General: cooperative, healthy appearing and no acute distress Orientation/consciousness: patient oriented x3 Limitations: no limitations HENMT Head: Yes normal to inspection and Yes atraumatic Ears: hearing grossly normal bilaterally General nose exam: Normal external nose present Face and sinus: Yes normal facial exam Eyes General: appearance normal, both eyes and all related structures EOM: EOMs intact bilaterally Neck Neck: Yes normal visual inspection and Yes no meningeal signs Resp Effort & Inspection: normal respiratory effort, Actively coughing Quality: dry and no respiratory distress Auscultation: wheezes expiratory wheezes and throughout Cardio Rate: regular rate Heart sounds: S1 normal heart sound present and S2 normal heart sound present GI Inspection: Yes normal to inspection Palpation (GI): Soft to palpation, nontender, no guarding and not rigid Skin Rashes: no rashes Wounds: no wounds Neuro General: patient oriented x3, tone normal and no meningeal signs Cranial nerves: Yes CN's II-XII intact bilaterally Gait exam (Neuro): Normal gait present Extrem General: Yes normal to inspection Course Course Course Narrative: RME: Will do 3-0 male recently diagnosed with questionable pneumonia presents to ED for shortness of breath after still finishing antibiotic course. Patient states his x-ray was normal but provider still treat him as pneumonia. Physical exam to be done by main ED. EKG labs x-ray ordered. -leukocytosis of 13.2. Initial troponin 7.6 > will obtain 3 hour repeat XR chest 1V IMPRESSION: Unremarkable examination. >> patient refused IV for IV Solu-Medrol. Also refused repeat troponin. P.o. prednisone given -1829-- On re-eval patient still with diffuse expiratory wheeze. Will have Respiratory re-evaluate patient -1841-- Had respiratory re-evaluate patient again for additional treatment however now patient refusing treatment and would like to be discharged. Patient requesting note to return to work. Discussed with patient we can not provide him with note to return to work as our recommendation at this time would likely be admission to the hospital due to his respiratory status/lung sounds. Patient refused any additional treatments at this time. Walked out of room. Discussed signing out AMA however walked out. -1844-patient returned to room and now agreeable to breathing treatment -1899--ED care transferred to [facility] pending re-evaluation after additional treatment. Admission vs discharge Reevaluation(s) Reevaluation #1: Patient states he feels better. Examination of lungs positive stool for expiratory wheezing. O2 saturation 98%. Patient refused IV medication. Patient prefer to do another round of oral steroids and antibiotics. Patient refused repeat troponin. Patient explained risks including without the repeat troponin. Admission was discussed for possible failed asthma treatment. Patient would like to go home. Patient is informed to return to the ED immediately for any worsening symptoms. Time: 20:13 Medications Administered Discontinued Medications Generic Name Dose Route Start Last Admin Trade Name Kandis PRN Reason Stop Dose Admin Albuterol Sulfate 5 mg/ 7.5 mg 05/05/24 19:04 05/05/24 19:08 Albuterol Sulfate 2.5 mg INHALE 05/05/24 19:05 7.5 mg ONCE ONE Administration Benzonatate 100 mg 05/05/24 17:36 05/05/24 18:10 Benzonatate 100 Mg Capsule PO 05/05/24 17:37 100 mg ONCE ONE Administration Albuterol Sulfate 5 mg/ 0 mg 05/05/24 17:30 05/05/24 17:39 Albuterol/Ipratropium 3 ml INHALE 05/05/24 17:31 1 each ONCE ONE Administration Hydrocodone Bit/Homatropine Methylb 5 ml 05/05/24 17:36 05/05/24 18:11 Hydrocodone/Homat 5/1.5/5 Ml 5 Ml Syrup PO 05/05/24 17:37 5 ml ONCE ONE Administration Prednisone 40 mg 05/05/24 17:40 05/05/24 18:10 Prednisone 20 Mg Tablet PO 05/05/24 17:41 40 mg ONCE ONE Administration Medical Decision Making Medical Decision Making [facility] Narrative: 53-year-old male with a past medical history opiate dependence, bronchopneumonia, presenting to ED complaining of persistent dry cough & SOB x1 week. On exam vital signs stable, NAD, nontoxic appearing, dry active cough appreciated, diffuse expiratory wheeze noted. Concern for persistent viral illness vs pneumonia vs bronchitis. Lower suspicion for ACS/PE or DVT. Plan: EKG, labs, CXR, viral studies, ED bronchodilator protocol, IV Solu-Medrol, re-evaluate Please refer to course for remaining clinical decision making, interpretation of labs/imaging results, and discussions with consultants and/or family members. Differential Diagnosis Differential Diagnoses: The differential diagnosis associated with the presentation includes As above Admission/Observation Consideration of admission/observation: Escalation of care including admission/observation considered Lab Data [facility] Lab Attestation statement: I reviewed the patient's lab results. 05/05/24 13:23 05/05/24 13:23 Labs: Lab Results 05/05/24 05/05/24 Range/Units 13:23 17:36 WBC 13.2 H (4.8-10.8) X10*3/uL RBC 5.64 (4.60-5.80) X10*6/uL Hgb 16.3 (14.0-18.0) g/dl Hct 48.5 (42.0-52.0) % MCV 86.0 (80.0-98.0) fL MCH 28.9 (27.0-33.0) pg MCHC 33.6 (31.0-36.0) g/dl RDW 13.4 (11.0-16.0) % Plt Count 411 H D (160-400) X10*3/uL MPV 9.4 (9.4-12.4) fL Immature Gran % (Auto) 1.7 H (0.0-0.4) % Neut % (Auto) 60.4 (45-73) % Lymph % (Auto) 25.4 (20-40) % Jones % (Auto) 7.8 (2-11) % Eos % (Auto) 3.3 (0-4) % Baso % (Auto) 1.4 (0-2) % Lymph # (Auto) 3.4 (1.2-4.9) X10*3/uL Jones # (Auto) 1.0 (0.1-1.2) X10*3/uL Eos # (Auto) 0.4 (0.0-0.4) X10*3/uL Baso # (Auto) 0.2 (0.0-0.2) X10*3/uL Abs Immat Gran (auto) 0.23 H (0.00-0.03) X10*3/uL Absolute Neuts (auto) 8.0 (2.0-8.3) x10*3/uL Absolute Nucleated RBC 0.000 (0.0-0.012) X10*3/uL Nucleated RBC % (auto) 0.0 (0.0-0.2) /100WBC PT 11.1 (10.9-12.4) SEC INR 1.0 (0.9-1.1) APTT 28.6 (26.0-36.8) SEC Sodium 143 (135-145) mmol/L Potassium 4.1 D (3.3-5.1) mmol/L Chloride 107 (96-108) mmol/L Carbon Dioxide 28 (22-29) mmol/L Anion Gap 12 (12-20) BUN 18 H (9-16) mg/dL Creatinine 1.18 (0.5-1.4) mg/dL Estim Creat Clear Calc 80.5 Estimated GFR > 60 Random Glucose 98 (60-115) mg/dL Calcium 8.8 (8.4-10.2) mg/dL Total Bilirubin 0.2 (0.0-1.0) mg/dL AST 17 (5-37) U/L ALT 40 (0-40) U/L Alkaline Phosphatase 72 (39-117) U/L Troponin I High Sens 7.6 (<3.5-35.0) ng/L B-Natriuretic Peptide < 10 (<100) pg/mL Total Protein 6.5 (6.5-8.0) g/dL Albumin 3.9 (3.5-5.0) g/dL Influenza Type A (PCR) NEGATIVE (Negative) Influenza Type B (PCR) NEGATIVE (Negative) RSV RNA Qual (PCR) NEGATIVE (Negative) SARS-CoV-2 RNA (RT-PCR) NEGATIVE (Negative) Radiology Impression Discussion of test interpretation with radiology: I have reviewed the radiologist's reading. External Record Review External record reviewed: Inpatient record, Office record, Outpatient record, Prior outpatient labs, Prior outpatient radiology, Primary care record and Outside ED record Tests considered The following testing was considered but not selected: As above Discharge Plan Discharge Clinical Impression: Bronchitis Patient Disposition: Left Against Medical Advice Instructions: Acute Bronchitis (ED) Additional Instructions: You are leaving without second troponin blood draw Please take medications as prescribed. Augmentin and doxycycline are antibiotics Take prednisone taper until completed Please have close follow-up with your doctor You should be re-evaluated in 2 days If her symptoms persist or worsen return to the emergency department. Y Prescriptions: New albuterol sulfate 90 mcg/actuation HFA aerosol inhaler 2 puff inhalation Q4-6H PRN (Reason: shortness of breath or wheezing) Qty: 6.7 0RF doxycycline hyclate 100 mg tablet 100 mg PO BID 7 Days Qty: 14 0RF amoxicillin-pot clavulanate 875-125 mg tablet 1 tab PO BID 7 Days Qty: 14 0RF prednisone 5 mg tablets,dose pack See Taper PO DIRECTED Qty: 21 0RF Taper: Prednisone 30 mg daily for 1 Day and 0 Hour 25 mg daily for 1 Day and 0 Hour 20 mg daily for 1 Day and 0 Hour 15 mg daily for 1 Day and 0 Hour 10 mg daily for 1 Day 5 mg daily for 1 Day Rx Instructions: prednisone 5 mg: take 6 tablets (30 mg) on Day 1; 5 tablets (25 mg) on Day 2; then decrease by 1 tablet every day until finished orally as directed; No Action fluoxetine 20 mg Capsule 60 mg PO DAILY azithromycin 500 mg Tablet 500 mg PO Q24H 3 Days Qty: 3 0RF cefuroxime axetil 500 mg tablet 500 mg PO BID Qty: 6 0RF prednisone 10 mg tablet See Taper PO DAILY Qty: 30 0RF Taper: Prednisone 40 mg daily for 3 Days and 0 Hour 30 mg daily for 3 Days and 0 Hour 20 mg daily for 3 Days and 0 Hour 10 mg daily for 3 Days and 0 Hour benzonatate 100 mg Capsule 200 mg PO TID 10 Days Qty: 60 0RF guaifenesin [Mucinex] 600 mg Tablet Extended Release 12hr 600 mg PO BID 10 Days Qty: 20 0RF albuterol sulfate 90 mcg/actuation HFA aerosol inhaler 1 inh inhalation QID PRN (Reason: shortness of breath or wheezing) Qty: 6.7 0RF codeine-guaifenesin 10-100 mg/5 mL liquid 5 ml PO Q6H PRN (Reason: cough) Qty: 120 0RF prednisone 20 mg tablet 20 mg PO BID Qty: 10 0RF azithromycin [Zithromax Z-Benjamín] 250 mg tablet See Rx Instructions .ROUTE .COMPLEX Qty: 6 0RF Rx Instructions: For 250 mg dose pack: take 500 mg today (day 1), then 250 mg for 4 days (days 2-5) albuterol sulfate 90 mcg/actuation HFA aerosol inhaler 2 puff inhalation QID PRN (Reason: shortness of breath or wheezing) Qty: 8.5 0RF acetaminophen 500 mg tablet 1,000 mg PO QID PRN (Reason: pain) Qty: 30 0RF ibuprofen 600 mg tablet 600 mg PO Q6H PRN (Reason: pain) Qty: 20 0RF oxycodone 5 mg tablet 5 mg PO Q6H PRN (Reason: pain) Qty: 12 0RF Rx Instructions: Partial Fill upon patient request. Referrals: [facility] [place] [facility] [Provider Group] Physician,Unknown J [Primary Care Provider] - Stand Alone Forms: Against Medical Advice, Work/School Release Interventions: ED Discharge Assessment Last Done: 05/05/24 20:29 Discharge Date/Time: 05/05/24 20:31 Print Language: Estonian
[2024-05-05 13:26] LABS: MANUAL DIFF FLAG NO
[2024-05-05 13:27] LABS: Basophils Absolute Auto 0.2 X10*3/uL (0.0-0.2); Basophils Percent Auto 1.4 % (0-2); Eosinophils Absolute Auto 0.4 X10*3/uL (0.0-0.4); Eosinophils Percent Auto 3.3 % (0-4); Hematocrit 48.5 % (42.0-52.0); Hemoglobin 16.3 g/dl (14.0-18.0); Imm Gran Abs Auto 0.23 X10*3/uL (0.00-0.03); Imm Gran Pct Auto 1.7 % (0.0-0.4); Lymphocytes Absolute Auto 3.4 X10*3/uL (1.2-4.9); Lymphocytes Percent Auto 25.4 % (20-40); Mean Corpuscular HGB Conc 33.6 g/dl (31.0-36.0); Mean Corpuscular Hemoglobin 28.9 pg (27.0-33.0); Mean Platelet Volume 9.4 fL (9.4-12.4); Monocytes Percent Auto 7.8 % (2-11); Neutrophils Percent Auto 60.4 % (45-73); Platelet Count 411 X10*3/uL (160-400); Red Blood Count 5.64 X10*6/uL (4.60-5.80); Red Cell Distribution Width 13.4 % (11.0-16.0); White Blood Count 13.2 X10*3/uL (4.8-10.8)
[2024-05-05 13:36] LABS: Prothrombin Time 11.1 SEC (10.9-12.4)
[2024-05-05 13:39] LABS: Partial Thromboplastin Time 28.6 SEC (26.0-36.8)
[2024-05-05 13:54] LABS: Alanine Aminotransferase 40 U/L (0-40); Albumin Level 3.9 g/dL (3.5-5.0); Alkaline Phosphatase 72 U/L (39-117); Anion Gap 12 (12-20); Aspartate Amino Transferase 17 U/L (5-37); Bilirubin Total 0.2 mg/dL (0.0-1.0); Blood Urea Nitrogen 18 mg/dL (9-16); Calcium 8.8 mg/dL (8.4-10.2); Carbon Dioxide 28 mmol/L (22-29); Chloride 107 mmol/L (96-108); Creatinine Clr Calc Pharmacy 80.5; Estimated Glomerular Filt Rate > 60; Glucose Random 98 mg/dL (60-115); Potassium 4.1 mmol/L (3.3-5.1); Sodium 143 mmol/L (135-145); Total Protein 6.5 g/dL (6.5-8.0)
[2024-05-05 13:59] LABS: B Type Natriuretic Peptide < 10 pg/mL (<100)
[2024-05-05 14:01] LABS: Troponin-I High Sensitivity 7.6 ng/L (<3.5-35.0)
[2024-05-05 17:30] VITALS: PULSE 92; RESP 18; O2SAT 95
[2024-05-05] MEDS: Albuterol Sulfate 5 MG, Albuterol/Iprat 2.5/0.5MG 3 ML 3 ML INHALE (17:39)
[2024-05-05 18:05] VITALS: BP 115/70; PULSE 83; RESP 18; TEMP 37; O2SAT 98
[2024-05-05] MEDS: Benzonatate 100 MG CAPSULE PO (18:10)
[2024-05-05] MEDS: predniSONE 20 MG TABLET 40 MG PO (18:10)
[2024-05-05] MEDS: HYDROcodone/Homat 5/1.5/5 ML 5 ML SYRUP PO (18:11)
[2024-05-05 18:42] LABS: Influenza A PCR NEGATIVE (Negative); Influenza B PCR NEGATIVE (Negative); Resp Syncy Virus RNA Qual PCR NEGATIVE (Negative); SARS COV2 PCR INHOUSE NEGATIVE (Negative)
[2024-05-05 19:08] VITALS: PULSE 82; RESP 18; O2SAT 96
[2024-05-05] MEDS: Albuterol Sulfate 5 MG, Albuterol Sulfate (0.083%) 2.5 MG 7.5 MG INHALE (19:08)
[2024-05-05 20:23] VITALS: BP 137/83; PULSE 103; RESP 22; TEMP 36.8; O2SAT 97
--- NOTE | 2024-05-05 20:28 | PC.NURSE ---
PT refused blood work because the first honey who stuck him didn't do it good. PT verbalizes understanding of DC instructions and wishes to leave ama.
[2024-05-05 20:29] VITALS: BP 137/83; PULSE 103; RESP 22; TEMP 36.8; O2SAT 97
== END 2024-05-05 20:31 | disposition left against medical advice (07) ==
PROVIDERS: Physician Assistant; Emergency Provider Emergency Medicine
DX: J40 Bronchitis, not specified as acute or chronic (principal); R05.9 Cough, unspecified; R06.02 Shortness of breath; Z79.899 Other long term (current) drug therapy; Z03.818 Encounter for observation for suspected exposure to other biological agents ruled out
CPT/HCPCS: 0241U; 36415; 71045; 80053; 83880; 84484; 85025; 85610; 85730; 93005; 94640; 94664; 99284

== ENCOUNTER → 2024-05-05 12:58 | Outpatient (BNV) | payer OTHER, SELFPAY | PROVIDERS: Visit Provider Internal Medicine Cardiovascular Disease | DX: R06.02 Shortness of breath (principal) | CPT/HCPCS: 93010 ==